=== PATIENT | male | born 1955 | race Caucasian/White ===

== ENCOUNTER → 2016-05-18 | Outpatient (CLI) | payer OTHER ==
[~2016-05-18] VITALS: Ht 185.4 cm; Wt 117.5 kg
[~2016-05-18] MED LIST: AAA; AVINZA75 MG PO; AZOR 5-40 MG T1 EACH PO; BENICAR HCT 401 EAC1 PO; CHANTIX1 MG; CHANTIX1 MG PO; CLONAZEPAM PO; DALIRESP500 MCG PO; DILAUDID 4 MG TA4 M1 PO; DURAGESIC1 EAC1 TD; FENTANYL PA50 MCG/HR TD; LIPITOR; MEDROLDOSEPACK PO; METHADONE HCL 110 M1 PO; METHADONE HCL5 MG PO; METHADOSE10 M1 PO; MS CONTIN30 MG PO; MUCINEX D TABL1 EAC1 PO; NORCO 10-325 T1 EACH PO; NUCYNTA100 MG PO; OXYCONTIN30 MG PO; PERCOCET 10-321 EACH PO; PERCOCET 7.5-31 EACH PO; PROAIR HFA8.5 GM INH; REMERON15 MG PO; RESTORIL30 MG PO; SPIRIVA INH; SYMBICORT80 MCG/4.1 INH; ZOCOR20 MG PO
--- NOTE | ~2016-05-18 | HPC ---
[facility] [place] [address] PAIN MANAGEMENT CONSULTATION Name: NAZANIN PEREZ Artie Room #: REG [facility] [place].#: [id number] Admission: 05/18/16 Attend Phys: Pollo Gillis DO Discharge: Date of : 56 Report #: [id number] THIS REPORT FOR: //name// CC: Octavio Gillis The patient is a very pleasant 60-year-old gentleman typically treated for left hip DJD, chronic pain syndrome requiring complex medication management. Last seen in the pain clinic on 03/02/2016. The patient had failed MS Contin, Avinza, Duragesic patch, and methadone. Ultimately OxyContin 30 mg b.i.d. has been efficacious for him. We have rotated back from the most recent trial of MS Contin 30 mg q. 8 hours to OxyContin 30 mg b.i.d. at last visit. We tried Percocet 7.5/325 for breakthrough pain. The patient returns to pain clinic today noting medications are providing sufficient analgesia to participate in activities of daily living, rates his overall pain as 7/10, primarily in left hip, groin, and knee, and little bit in the right knee. He continues to be quite physically active. 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 To his credit, he has continued to wean smoking, though he does smoke 2-3 cigarettes a day. We reviewed the fact that opiate medications are being used to provide analgesia adequate to support activities of daily living, not attempting to achieve a specific pain score on the 0-10 Visual Analog Scale. The current opiate medications are providing sufficient analgesia to allow the patient to participate in activities of daily living. The patient is not exhibiting any aberrant behavior suggestive of drug diversion. The patient is not having any adverse reactions to medications. The patient is not suffering from daytime somnolence or mental acuity changes. The patient is managing opiate-induced constipation with appropriate pjbn-jsu-zbvlnvh agents and dietary considerations. The patient was counseled on concern for caution with operating a motor vehicle while using opiate medications. A physical exam was performed and the patient's functional status was evaluated. All patients with back pain were advised against the bed rest greater than 4 days and were advised to return to normal activities. Pain score assessment was noted and the treatment plan was reviewed with the patient. All current medications, both prescribed and OTC were reviewed and reconciled on the electronic medical record. Tobacco screening was accomplished and smoking cessation was advised when indicated. BMI was noted and diet/exercise modification was recommended for all patients following outside normal parameters. I reviewed with the patient today their responsibilities to safeguard prescription medications, reviewed their responsibility to utilize medications only as prescribed by the physician. They are to seek and receive pain [address] [address] PAIN MANAGEMENT CONSULTATION Name: SELENEJEDNAZANIN L Room #: REG [facility]av[facility]ria#: [id number] Admission: 05/18/16 Attend Phys: Pollo Gillis DO Discharge: Date of : 56 Report #: [id number] medications only from 1 physician group ( [facility]). They are to use 1 pharmacy and keep the clinic informed if they change pharmacies. Their responsibilities include making followup visits in a timely fashion and to avoid abrupt discontinuation of medication usage. Their responsibilities further include bringing their medications (bottles from the pharmacy with residual pills) to the visit for possible confirmation of pill counts and the patient understands it is their responsibility to submit to random drug screens to ensure both that the medications prescribed are present, and that no other controlled substances are present. All prescriptions provided today were generated electronically. PHYSICAL EXAMINATION: Reveals a 60-year-old gentleman, BMI is 34.2 kilograms per meter squared. Blood pressure is little bit elevated today at 174/94, pulse 72, respirations are 20. Alert and oriented to person, place, and time. Judged to be a reasonable historian. Rises from the chair using armrest, modestly antalgic gait, favoring the left hip and leg. Lower extremity strength is symmetric. MEDICATIONS: Were reconciled today. He does take amlodipine and simvastatin along with roflumilast, and ProAir albuterol inhaler, along with Spiriva inhaler. Today, we did discuss pain medications at length. He is at, by definition, a supratherapeutic load of opiate, around 130 mEq of morphine. Lower doses, however, have impacted the patient's functional status. He has come to this dose fairly slowly. We have elected to continue OxyContin 30 mg b.i.d. (roughly equivalent to 90 mEq of morphine), and we will rotate from Percocet 7.5 to hydrocodone 10/325 up to 4 a day for breakthrough pain (another 40 mEq of morphine for a total of 130 mEq). This causes less cognitive impairment than the oxycodone p.r.n. I have taken the liberty of writing for 3 months of current medication. Follow up in 3 months for reevaluation. Last urine drug screen was on 10/04/2015, positive for prescribed medications. <ELECTRONICALLY SIGNED> By: Pollo Gillis, 05/20/16 0824 [id number] [id number] Pollo Gillis DO /nt
[2016-05-18 08:15] VITALS: BP 174/94
== END | disposition home or self-care (01) ==
LOC: PAIN 07:21
DX: G89.4 Chronic pain syndrome (principal); F11.20 Opioid dependence, uncomplicated; F17.210 Nicotine dependence, cigarettes, uncomplicated

== ENCOUNTER → 2016-08-07 | Outpatient (CLI) | payer OTHER ==
[~2016-08-07] VITALS: Ht 185.4 cm; Wt 117.0 kg
[~2016-08-07] MED LIST changes: +AMLODIPINE BESY10 MG PO; +MOBIC15 MG PO
--- NOTE | ~2016-08-07 | HPC ---
[facility] [place] [place] [address] PAIN MANAGEMENT CONSULTATION Name: NAZANIN PEREZ Artie Room #: REG [facility] Aura#: [id number] Admission: 08/07/16 Attend Phys: Pollo Gillis, DO Discharge: Date of : 56 Report #: [id number] THIS REPORT FOR: //name// CC: Octavio Gillis The patient is a very pleasant 60-year-old gentleman typically treated for chronic pain syndrome, DJD, left hip requiring complex medication management. He was last seen in the pain clinic on 05/18/2016, continued on baseline medication including OxyContin 30 mg b.i.d. and hydrocodone 10/325 four a day. We reviewed the fact that this is a relatively supratherapeutic opiate load at approximately 120 mEq of morphine. However, we have rotated from various opiates and tried weaning all with significant impact on function. I reviewed his opiate consent to treat contract which was resigned on 12/16/2015. We reviewed his last urine drug screen 10/06/2012, which is positive for prescribed medications and no others. He returns to pain clinic today noting he is starting to feel that his functioning is getting a little worse. Ongoing pain in his left hip, status post left total hip arthroplasties. He has had chronic pain here, medications have helped. 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 Continues to smoke and we talked about this at length today. He is up to 2 packs a day. He made an interesting comment stating that if he tries to quit and fails, it makes him depress. He has had struggles with depression over time. He lost his brother several years ago, has had difficulty with children having had 1 child and another child in long-term. He remains a very upbeat gentleman. He returns to pain clinic today noting subjective pain score of 7/10, remains functionally active, though he notes he is starting to pass on some of the more physically demanding tasks in his job. 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 PHYSICAL EXAMINATION: Relatively unchanged, a pleasant 60-year-old gentleman, BMI is 34 kilograms per meter squared. Blood pressure 153/73, pulse 80, respirations 16. Rises from chair using armrest. Still has a modestly antalgic gait favoring that left hip. Lower extremity strength is preserved. There is a slight leg length discrepancy here. We reviewed the fact that opiate medications are being used to provide analgesia adequate to support activities of daily living, not attempting to achieve a specific pain score on the 0-10 Visual Analog Scale. The current opiate medications are providing sufficient analgesia to allow the patient to participate in activities of daily living. The patient is not exhibiting any aberrant behavior suggestive of drug diversion. The patient is not having any adverse reactions to medications. The patient is not suffering from daytime [address] [address] PAIN MANAGEMENT CONSULTATION Name: NAZANIN PEREZ Room #: REG DANIEL Chavarria#: [id number] Admission: 08/07/16 Attend Phys: Pollo Gillis DO Discharge: Date of : 56 Report #: [id number] somnolence or mental acuity changes. The patient is managing opiate-induced constipation with appropriate bzcs-cxb-dtafnzt agents and dietary considerations. The patient was counseled on concern for caution with operating a motor vehicle while using opiate medications. A physical exam was performed and the patient's functional status was evaluated. All patients with back pain were advised against the bed rest greater than 4 days and were advised to return to normal activities. Pain score assessment was noted and the treatment plan was reviewed with the patient. All current medications, both prescribed and OTC were reviewed and reconciled on the electronic medical record. Tobacco screening was accomplished and smoking cessation was advised when indicated. BMI was noted and diet/exercise modification was recommended for all patients following outside normal parameters. I reviewed with the patient today their responsibilities to safeguard prescription medications, reviewed their responsibility to utilize medications only as prescribed by the physician. They are to seek and receive pain medications only from 1 physician group ( [facility]). They are to use 1 pharmacy and keep the clinic informed if they change pharmacies. Their responsibilities include making followup visits in a timely fashion and to avoid abrupt discontinuation of medication usage. Their responsibilities further include bringing their medications (bottles from the pharmacy with residual pills) to the visit for possible confirmation of pill counts and the patient understands it is their responsibility to submit to random drug screens to ensure both that the medications prescribed are present, and that no other controlled substances are present. All prescriptions provided today were generated electronically. ASSESSMENT: Degenerative joint disease, left hip, status post total hip arthroplasty with ongoing pain since 2006, chronic pain syndrome requiring complex medication management, stable on baseline medications. Comorbidity includes nicotine habituation and some low level anxiety and depression. RECOMMENDATIONS: Continue current schedule 2 narcotic unchanged. I have taken the liberty of writing for 2 months of current medications. The patient was seen for a prolonged visit today from 10:03-10:30. Greater than 50% of the 25+ minute visit was spent generally counseling the patient, expressing increasing function status and cognitive behavioral therapy and pain management techniques. Discharged in good and stable condition. Follow up in 3 months. By: [id number] Pollo Gillis DO /nt
[2016-08-07 09:59] VITALS: BP 153/73
== END | disposition home or self-care (01) ==
LOC: PAIN 07:09
DX: M16.12 Unilateral primary osteoarthritis, left hip (principal); M25.552 Pain in left hip; G89.4 Chronic pain syndrome; F17.200 Nicotine dependence, unspecified, uncomplicated; F11.20 Opioid dependence, uncomplicated; Z96.642 Presence of left artificial hip joint

== ENCOUNTER → 2016-10-23 | Outpatient (CLI) | payer OTHER ==
[~2016-10-23] VITALS: Ht 185.4 cm; Wt 117.5 kg
[~2016-10-23] MED LIST changes: +FLONASE 0.05%50 MCG NASAL; +WELLBUTRIN XL150 MG PO
--- NOTE | ~2016-10-23 | HPC ---
[facility] [place] [address] [place] [address] PAIN MANAGEMENT CONSULTATION Name: NAZANIN PEREZ Artie Room #: REG [facility]#: [id number] Admission: 10/23/16 Attend Phys: Pollo Gillis DO Discharge: Date of : 56 Report #: [id number] THIS REPORT FOR: //name// CC: Octavio Gillis The patient is a very pleasant 60-year-old gentleman being treated for chronic pain syndrome, left hip pain requiring complex medication management, comorbidity of some depression. Last visit 08/07/2016, we continued the patient on baseline medication including OxyContin 30 mg b.i.d., hydrocodone 10/325 four a day, counseled the patient regarding smoking cessation. 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 He just started it last week. He is hopeful this will help some with his chronic anxiety and depression. Notes ongoing left hip and groin pain with some right knee pain noted. Rates his pain 6 on a 0-10 visual analog scale, sharp, stabbing, constant pain exacerbated with walking and other activity. PHYSICAL EXAMINATION: Unchanged. A 60-year-old gentleman, BMI is 34.2 kilograms per meter squared. Blood pressure modestly elevated at 167/80, pulse 69, respirations 14. Cranial nerves 2-12 are grossly intact. Pupils equal, reactive to light and accommodation. Extraocular muscles are intact. Rises from chair using armrest. Modestly antalgic gait. Left hip range of motion is limited. We reviewed the fact that opiate medications are being used to provide analgesia adequate to support activities of daily living, not attempting to achieve a specific pain score on the 0-10 Visual Analog Scale. The current opiate medications are providing sufficient analgesia to allow the patient to participate in activities of daily living. The patient is not exhibiting any aberrant behavior suggestive of drug diversion. The patient is not having any adverse reactions to medications. The patient is not suffering from daytime somnolence or mental acuity changes. The patient is managing opiate-induced constipation with appropriate fiky-xfy-fwxsyjr agents and dietary considerations. The patient was counseled on concern for caution with operating a motor vehicle while using opiate medications. A physical exam was performed and the patient's functional status was evaluated. All patients with back pain were advised against the bed rest greater than 4 days and were advised to return to normal activities. Pain score assessment was noted and the treatment plan was reviewed with the patient. All current medications, both prescribed and OTC were reviewed and reconciled on the electronic medical record. Tobacco screening was accomplished and smoking cessation was advised when indicated. BMI was noted and diet/exercise modification was recommended for all patients following outside normal parameters. [address] [address] PAIN MANAGEMENT CONSULTATION Name: NAZANIN PEREZ Room #: REG DANIEL Chavarria#: [id number] Admission: 10/23/16 Attend Phys: Pollo Gillis DO Discharge: Date of : 57 Report #: [id number] I reviewed with the patient today their responsibilities to safeguard prescription medications, reviewed their responsibility to utilize medications only as prescribed by the physician. They are to seek and receive pain medications only from 1 physician group ( [facility]). They are to use 1 pharmacy and keep the clinic informed if they change pharmacies. Their responsibilities include making followup visits in a timely fashion and to avoid abrupt discontinuation of medication usage. Their responsibilities further include bringing their medications (bottles from the pharmacy with residual pills) to the visit for possible confirmation of pill counts and the patient understands it is their responsibility to submit to random drug screens to ensure both that the medications prescribed are present, and that no other controlled substances are present. All prescriptions provided today were generated electronically. Since we last saw the patient, he did have significant diagnostic studies and workup with his deputy sheriff generalist physician. White count is modestly elevated in the 12 range. Other values are all within normal limits. Renal function is good. A testosterone level was not drawn, he has a followup appointment for physical exam next week and I did strongly suggest that they check a testosterone level at that time. Medications were reconciled, noting antihypertensive amlodipine, pulmonary agents including Spiriva, Daliresp, ProAir inhaler, meloxicam 15 mg 1 a day and the new agent, bupropion 150 mg daily. Today, we have elected to continue OxyContin 30 mg b.i.d., hydrocodone 10/325 up to 4 a day. Last urine drug screen 10/04/2015 was positive for prescribed medication. We will see the patient back in 3 months for reevaluation, likely get a urine drug screen at that time. No aberrant behavior suggestive for drug diversion, simply complying with our opiate consent to treat contract. By: [id number] Pollo Gillis DO /nt
[2016-10-23 08:59] VITALS: BP 167/80
== END | disposition home or self-care (01) ==
LOC: PAIN 06:32
DX: G89.4 Chronic pain syndrome (principal); M25.552 Pain in left hip; F32.89 Other specified depressive episodes; F41.8 Other specified anxiety disorders; F11.20 Opioid dependence, uncomplicated; F17.200 Nicotine dependence, unspecified, uncomplicated; Z88.0 Allergy status to penicillin; Z79.899 Other long term (current) drug therapy

== ENCOUNTER → 2017-01-11 | Outpatient (CLI) | payer OTHER ==
[~2017-01-11] VITALS: Ht 185.4 cm; Wt 117.0 kg
--- NOTE | ~2017-01-11 | HPC ---
[facility] [address] [address] PAIN MANAGEMENT CONSULTATION Name: NAZANIN PEREZ Artie Room #: REG [facility] Aura#: [id number] Admission: 01/11/17 Attend Phys: Pollo Gillis DO Discharge: Date of : 57 Report #: [id number] THIS REPORT FOR: //name// CC: Octavio Gillis DATE OF SERVICE: 01/11/2017 HISTORY OF PRESENT ILLNESS: The patient is a very pleasant 61-year-old gentleman, being treated for left hip pain, DJD affecting bilateral hips, chronic pain syndrome requiring complex medication management in a gentleman who continues to smoke. The patient was last seen in pain clinic on 10/23/2016. Prior urine drug screen on 10/04/2015 was positive for prescribed medications. The patient is self pay, we have been a little hesitant about moving forward with another repeat drug test simply for cost concerns. We will get a buccal swab at next visit with some research looks like it is about $40 for patient pay. The patient returns today. To his credit, he has been continuing to try and quit smoking. General practitioner had started him on Wellbutrin; unfortunately, this caused some increasing anxiety, he discontinued it. He is having a little bit of right lower extremity edema, which is unusual for him. Lower extremity edema is nominal to trace on the left, but he does have maybe +1 on the right side. He got a cardiac scan at for a $50 noting that did have a calcium low. They scheduled a cardiac evaluation at . This was scheduled for 12/19. Notes currently pain as a 5 on a VAS, continuous pain in the left hip and left groin with a little bit of pain now in the right hip as well. 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 PHYSICAL EXAMINATION: Shows a 61-year-old gentleman, BMI is 34 kilograms per meter squared. Vital signs are generally stable. Rises from chair using armrest. Nominally antalgic gait. The left hip replaced at age 31 due to trauma. He had it revised 20 years later at age 51. Left hip again some chronic pain, well managed with current medications. Right hip does show a little pain with passive rotation with internal and external. No pain with palpation over the trochanteric bursa. No pain over the SI joint. Again, continues to smoke, but is down to half a pack a day. We talked about the patient's triggers for smoking, tends to be anxiety and ironically shortness of breath. We talked about the reward being some period of time that he gets to relax i.e., the 5 minutes to take to smoke a cigarette. I suggested he identify those [address] [address] PAIN MANAGEMENT CONSULTATION Name: NAZANIN PEREZ Artie Room #: REG [facility]avarria#: [id number] Admission: 01/11/17 Attend Phys: Pollo Gillis DO Discharge: Date of : 57 Report #: [id number] triggers and still enjoy the reward i.e., 5 minutes to take a break both mentally and physically from what he is doing, but instead of smoking look for another diversion. To this end, he notes he just had a grandson, his first grandchild, born on 11/05. He has multiple pictures on his phone of his grandson. He showed me some of them. I suggest that he focused on looking at those pictures or doing some other restful, stress relieving short strategies for 4 or 5 minutes rather than lighting a cigarette. We reviewed the fact that opiate medications are being used to provide analgesia adequate to support activities of daily living, not attempting to achieve a specific pain score on the 0-10 Visual Analog Scale. The current opiate medications are providing sufficient analgesia to allow the patient to participate in activities of daily living. The patient is not exhibiting any aberrant behavior suggestive of drug diversion. The patient is not having any adverse reactions to medications. The patient is not suffering from daytime somnolence or mental acuity changes. The patient is managing opiate-induced constipation with appropriate ixyt-wot-ktilsha agents and dietary considerations. The patient was counseled on concern for caution with operating a motor vehicle while using opiate medications. A physical exam was performed and the patient's functional status was evaluated. All patients with back pain were advised against the bed rest greater than 4 days and were advised to return to normal activities. Pain score assessment was noted and the treatment plan was reviewed with the patient. All current medications, both prescribed and OTC were reviewed and reconciled on the electronic medical record. Tobacco screening was accomplished and smoking cessation was advised when indicated. BMI was noted and diet/exercise modification was recommended for all patients following outside normal parameters. I reviewed with the patient today their responsibilities to safeguard prescription medications, reviewed their responsibility to utilize medications only as prescribed by the physician. They are to seek and receive pain medications only from 1 physician group ([facility]). They are to use 1 pharmacy and keep the clinic informed if they change pharmacies. Their responsibilities include making followup visits in a timely fashion and to avoid abrupt discontinuation of medication usage. Their responsibilities further include bringing their medications (bottles from the pharmacy with residual pills) to the visit for possible confirmation of pill counts and the patient understands it is their responsibility to submit to random drug screens to ensure both that the medications prescribed are present, and that no other controlled substances are present. All prescriptions provided today were generated electronically. ASSESSMENT: Symptomatic degenerative joint disease, left hip, status post total hip arthroplasty and revision, some chronic pain now in the right hip as well, requiring high risk complex medication management, stable on OxyContin 30 mg b.i.d., hydrocodone 10/325. This is by definition somewhat of a [facility] [address] [place] [address] PAIN MANAGEMENT CONSULTATION Name: NAZANIN PEREZ Artie Room #: REG [facility].#: [id number] Admission: 01/11/17 Attend Phys: Pollo Gillis DO Discharge: Date of : 57 Report #: [id number] supratherapeutic load at about a 115 mEq of morphine. We have tried an opiate rotation and weaning, although these have always ended with decreased functional status. We elected to continue current medication unchanged for another 3 months. Buccal swab at next visit. Discharged in good and stable condition. <ELECTRONICALLY SIGNED> By: Pollo Gillis DO 01/13/17 0811 0847 [id number] Pollo Gillis DO /nt
[2017-01-11 08:07] VITALS: BP 141/82
== END ==
LOC: PAIN 07:10
DX: M16.0 Bilateral primary osteoarthritis of hip (principal)

== ENCOUNTER → 2017-06-28 | Outpatient (CLI) | payer OTHER ==
[~2017-06-28] VITALS: Ht 182.9 cm; Wt 119.6 kg
[~2017-06-28] MED LIST changes: +CLONAZEPAM 0.50.5 M1 PO; +HYDROCHLOROTHIA25 M2 PO; +LIPITOR 20 MG T20 M1 PO; +NICOTINE TRANSD21 M1; +ST. JOSEPH ASPI81 MG PO
--- NOTE | ~2017-06-28 | HPC ---
[facility] [place] [address] [place] [address] PAIN MANAGEMENT CONSULTATION Name: NAZANIN PEREZ Artie [facility] [id number] Admission: 06/28/17 Attend Phys: Pollo Gillis DO Discharge: Date of : 56 Report #: [id number] THIS REPORT FOR: //name// CC: Octavio Gillis The patient is a 61-year-old gentleman typically treated for DJD affecting bilateral hips, left greater than right, requiring complex medication management. Last seen in the pain clinic 03/29/2017. Since last visit, the patient has had significant health issues. He was admitted to [facility] with pneumonia. Fortunately, during this interval, he did quit smoking and is now about 30 days nonsmoker. He returns to pain clinic today noting pain impact score is 31/70. His opiate risk assessment tool scores him in the moderate risk (4). The patient notes current pain is a 6 on VAS, primarily left greater than right hip. He notes if he walks more that about 5 minutes, gait becomes problematic. PHYSICAL EXAMINATION: Shows a pleasant 61-year-old gentleman, BMI is 35.7 kg/m2. Blood pressure 161/68, pulse 79, respirations are 20, room air oxygen saturation is 97%. He has not fallen in the last 3 months. He is hypertensive. Medication list was reconciled today. His last opiate consent to treat contracted was signed 12/16/2015. Last random drug screen 03/30/2017, was positive for prescribed medications and no others. Again, the patient had been up to 2 packs a day smoker, 45-year smoking, though he has now been a nonsmoker for 30 days. Rises from chair using armrest. Gait is tandem initially, though states with about 5 minutes of walking, his gait does become modestly antalgic. Slight decreased range of motion in both hips, left greater than right with exacerbation of pain, full range of motion. Krishna test is negative. No discrete trigger points are noted. We reviewed the fact that opiate medications are being used to provide analgesia adequate to support activities of daily living, not attempting to achieve a specific pain score on the 0-10 Visual Analog Scale. The current opiate medications are providing sufficient analgesia to allow the patient to participate in activities of daily living. The patient is not exhibiting any aberrant behavior suggestive of drug diversion. The patient is not having any adverse reactions to medications. The patient is not suffering from daytime somnolence or mental acuity changes. The patient is managing opiate-induced constipation with appropriate espt-jmk-ebtxevr agents and dietary considerations. The patient was counseled on concern for caution with operating a motor vehicle while using opiate medications. A physical exam was performed and the patient's functional status was evaluated. All patients with back pain were advised against the bed rest greater than 4 days and were advised to return to normal activities. Pain score assessment was [address] [address] PAIN MANAGEMENT CONSULTATION Name: NAZANIN PEREZ Artie Room #: REG DANIEL Chavarria#: [id number] Admission: 06/28/17 Attend Phys: Pollo Gillis DO Discharge: Date of : 56 Report #: [id number] noted and the treatment plan was reviewed with the patient. All current medications, both prescribed and OTC were reviewed and reconciled on the electronic medical record. Tobacco screening was accomplished and smoking cessation was advised when indicated. BMI was noted and diet/exercise modification was recommended for all patients following outside normal parameters. I reviewed with the patient today their responsibilities to safeguard prescription medications, reviewed their responsibility to utilize medications only as prescribed by the physician. They are to seek and receive pain medications only from 1 physician group ( [facility]). They are to use 1 pharmacy and keep the clinic informed if they change pharmacies. Their responsibilities include making followup visits in a timely fashion and to avoid abrupt discontinuation of medication usage. Their responsibilities further include bringing their medications (bottles from the pharmacy with residual pills) to the visit for possible confirmation of pill counts and the patient understands it is their responsibility to submit to random drug screens to ensure both that the medications prescribed are present, and that no other controlled substances are present. All prescriptions provided today were generated electronically. ASSESSMENT: Degenerative joint disease, bilateral hips, left greater than right, requiring complex medication management. RECOMMENDATION: Long discussion with the patient today about therapeutic option. I pointed out that he is by definition at a supratherapeutic dose of narcotic, has been stable on OxyContin 30 mg b.i.d., Percocet 10/325 up to 4 a day. This equates to roughly 150 mg of morphine equivalents. We discussed that at next visit in the warmer weather, we will try and decrease his OxyContin as able. Discharged in good and stable condition. The patient was given prescription for 3 months of current medication. Follow up at that time, earlier if needed. <ELECTRONICALLY SIGNED> By: Pollo Gillis DO 07/01/17 1010 [id number] Pollo Gillis DO /nt
[2017-06-28 09:18] VITALS: BP 161/68
== END ==
LOC: PAIN 06-07 06:50
DX: M16.0 Bilateral primary osteoarthritis of hip (principal); Z79.899 Other long term (current) drug therapy

== ENCOUNTER → 2017-11-12 | Outpatient (CLI) | payer OTHER ==
[~2017-11-12] VITALS: Ht 182.9 cm; Wt 121.4 kg
--- NOTE | ~2017-11-12 | HPC ---
[facility] [place] [address] PAIN MANAGEMENT CONSULTATION Name: NAZANIN PEREZ Artie Room #: REG [facility].#: [id number] Admission: 11/12/17 Attend Phys: Pollo Gillis DO Discharge: Date of : 56 Report #: [id number] THIS REPORT FOR: //name// CC: Octavio Gillis DATE OF SERVICE: 11/12/2017 The patient is a very pleasant 62-year-old gentleman being treated for chronic pain syndrome requiring complex medication management. The patient has significant osteoarthritis affecting bilateral hips. He is status post left total hip arthroplasty, originally 1985, revised in 2005. Ongoing left hip osteoarthritic pain. Last seen in the Pain Clinic on 09/03/2017. The patient was continued on chronic opiate analgesics including OxyContin 30 mg b.i.d., Percocet 10/325 up to 4 a day. We discussed that this is a relative supratherapeutic opiate load, equating to 150 mg morphine equivalents. We would like to try and wean this; however, past trials at opiate wean have caused significant decrease in functional status. Regarding functional status, we had a prolonged visit today. I spent reviewing therapeutic options and impact of ongoing pain. The patient is becoming more and more functionally disabled despite ongoing analgesics. He states if he walks greater than 100 yards, pain becomes quite problematic. He cannot "make it through the [employer]" without significant pain. He is having more and more trouble getting in and out of his van. Again, pain is in the right greater than left hip. He also has some pain in the left wrist and does actually have some osseous hypertrophy to distal aspect of the left radial head at the carpal joint. To patient's credit, he has continued to try and quit smoking. He understands this is a very difficult task. He notes, "This is my 35th attempt at smoking cessation." He is down from 2 packs a day to about a half a pack a day. The patient was applauded on this effort and encouraged to continue. PHYSICAL EXAMINATION: Shows 62-year-old gentleman, BMI is 36.3 kg/m2. Vital signs stable as noted on the EMR (blood pressure 156/73, pulse 82, respirations of 16, room air oxygen saturation is 97%). He is alert and oriented to person, place and time, judged to be a reasonable historian. Again, a little osseous hypertrophy of the left distal radial head. Limited range of motion in the wrist to supination, pronation, flexion and extension. Left little worse than the right. Modestly endomorphic build with [facility] [address] [place] [address] PAIN MANAGEMENT CONSULTATION Name: SELENEISATUNAZANIN ELLINGTON Room #: REG [facility].#: [id number] Admission: 11/12/17 Attend Phys: Pollo Gillis DO Discharge: Date of : 56 Report #: [id number] BMI of 36.3 kg/m2. Rises from chair using armrest, has a moderately antalgic gait, which progressively gets a little worse with ambulation. Last random drug screen on 03/29/2017 was positive for prescribed medications. We reviewed the fact that opiate medications are being used to provide analgesia adequate to support activities of daily living, not attempting to achieve a specific pain score on the 0-10 Visual Analog Scale. The current opiate medications are providing sufficient analgesia to allow the patient to participate in activities of daily living. The patient is not exhibiting any aberrant behavior suggestive of drug diversion. The patient is not having any adverse reactions to medications. The patient is not suffering from daytime somnolence or mental acuity changes. The patient is managing opiate-induced constipation with appropriate tapv-ecd-xsybjav agents and dietary considerations. The patient was counseled on concern for caution with operating a motor vehicle while using opiate medications. A physical exam was performed and the patient's functional status was evaluated. All patients with back pain were advised against the bed rest greater than 4 days and were advised to return to normal activities. Pain score assessment was noted and the treatment plan was reviewed with the patient. All current medications, both prescribed and OTC were reviewed and reconciled on the electronic medical record. Tobacco screening was accomplished and smoking cessation was advised when indicated. BMI was noted and diet/exercise modification was recommended for all patients following outside normal parameters. I reviewed with the patient today their responsibilities to safeguard prescription medications, reviewed their responsibility to utilize medications only as prescribed by the physician. They are to seek and receive pain medications only from 1 physician group ([facility]). They are to use 1 pharmacy and keep the clinic informed if they change pharmacies. Their responsibilities include making followup visits in a timely fashion and to avoid abrupt discontinuation of medication usage. Their responsibilities further include bringing their medications (bottles from the pharmacy with residual pills) to the visit for possible confirmation of pill counts and the patient understands it is their responsibility to submit to random drug screens to ensure both that the medications prescribed are present, and that no other controlled substances are present. All prescriptions provided today were generated electronically. Again, it has been quite some time since we have had any diagnostic studies. MRI of the lower extremity back in 2004 noted degenerative changes of the lumbar spine, arthritic changes in the joint. ASSESSMENT: Chronic osteoarthritis affecting bilateral hips and wrists, status [address] [address] PAIN MANAGEMENT CONSULTATION Name: NAZANIN PEREZ Room #: REG [facility]#: [id number] Admission: 11/12/17 Attend Phys: Pollo Gillis DO Discharge: Date of : 56 Report #: [id number] post right total hip arthroplasty 1985, revised in 2005; ongoing left hip OA pain. Decreasing functional status as noted longitudinally in the chart. PLAN: Discussion with the patient today about moving forward. Again, out of nearly 30 years of practice, I have actively suggested disability for less than a half dozen patients. Typically, we view our goal in pain management to try and mitigate current pain issues and encourage the patient to move forward with functional ability, using interventional techniques and the pain treatment algorithm latter to help patient maintain functional status with pain being somewhat lowered, never seeking a "0" on a 0-10 visual analog scale. In the patient's case, however, I feel he has been very proactively productive. 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 He is very proud of his independence and work effort. This has been clear over the years. Unfortunately, I really feel that his functional status is declining to the point that meaningful employment is not likely going to be a realistic possibility in a very short time period. Today, I did renew the patient's current medication, OxyContin 30 mg b.i.d., Percocet 10/325 at 4 a day. Encouraged to continue with his smoking cessation. Discharged in good and stable condition. Follow up with one of my [facility] in 3 months. <ELECTRONICALLY SIGNED> By: Pollo Gillis DO 11/14/17 1135 0919 1000 Pollo Gillis DO /nt
[2017-11-12 08:22] VITALS: BP 156/73
== END ==
LOC: PAIN 07:58
DX: M16.0 Bilateral primary osteoarthritis of hip (principal); M19.032 Primary osteoarthritis, left wrist; M19.031 Primary osteoarthritis, right wrist; G89.4 Chronic pain syndrome; Z96.651 Presence of right artificial knee joint; Z79.899 Other long term (current) drug therapy

== ENCOUNTER → 2018-01-21 | Outpatient (CLI) | payer OTHER ==
[~2018-01-21] VITALS: Ht 182.9 cm; Wt 115.8 kg
[2018-01-21 08:16] VITALS: BP 148/85
== END ==
LOC: PAIN 06:55
DX: M25.552 Pain in left hip (principal); G35 Multiple sclerosis; M25.551 Pain in right hip; G89.29 Other chronic pain; Z79.899 Other long term (current) drug therapy

== ENCOUNTER → 2018-04-11 | Outpatient (CLI) | payer OTHER ==
[~2018-04-11] VITALS: Ht 182.9 cm; Wt 115.9 kg
--- NOTE | ~2018-04-11 | HPC ---
[facility] [address] [place] [address] PAIN MANAGEMENT CONSULTATION Name: NAZANIN PEREZ Room #: [facility] [id number] Admission: 04/11/18 Attend Phys: Diane Valverde Discharge: Date of : 56 Report #: [id number] THIS REPORT FOR: //name// CC: Diane Valverde Soco Allen DATE OF SERVICE: 04/11/2018 CHIEF COMPLAINT: Chronic pain syndrome, osteoarthritis affecting his bilateral hips and wrists. HISTORY OF PRESENT ILLNESS: This is a very pleasant 62-year-old gentleman who has been followed by the Pain Clinic for several years. He has been treated for chronic pain with complex medical management. He has significant osteoarthritis affecting his hips bilaterally. He has had a left hip arthroplasty in 1985 and a revision in 2005. He does have ongoing left hip pain. He tells me that his OxyContin 30 mg twice a day and his hydrocodone 10/325 up to 4 times a day has been very helpful in controlling his pain. He rates it as 5/10 today and would like a refill of this medication. CURRENT ALLERGIES: PENICILLIN. CURRENT LIST OF MEDICATIONS: OxyContin 30 mg twice a day, hydrocodone 10/325 one tablet 4 times a day, atorvastatin 20 mg daily, baby aspirin 81 mg daily, clonazepam 0.5 twice a day, nicotine patch once daily, hydrochlorothiazide 25 mg daily, amlodipine 40 mg daily, Mucinex as needed, ProAir as needed, Daliresp 500 mcg daily and Spiriva inhaler daily. PQRS: 1. History of osteoarthritis involving his left hip with two hip replacements. Denies rheumatoid arthritis. 2. Height is 6 feet, weight is 255, BMI is 34.4. 3. Vital signs: Blood pressure 164/95, pulse is 70, respirations 20, oxygen sat is 98%. Pain score is 5. 4. Dizziness, he denies. He does not need help walking or standing and has not fallen in the last 3 months. 5. The patient is not on a blood thinner, but does take antihypertensive medicines. 6. Opioid therapy is greater than 6 weeks, therefore an opioid signed contract is on the chart. 7. Risk assessment tool is moderate and his functional assessment is 31/70. 8. Recreational drug use, is greater than 3 months. He has a current cigarette smoker though is trying to quit and does not use alcohol. We did check the [place] Prescription monitoring systems. The patient is filling appropriately from Dr. Mcmahon at appropriate times. The [address] [address] PAIN MANAGEMENT CONSULTATION Name: NAZANIN PEREZ Room #: REG [facility].#: [id number] Admission: 04/11/18 Attend Phys: Diane Valverde Discharge: Date of : 56 Report #: [id number] patient tells me he does safeguard his meds. We will check a drug screen again on this patient today it has been almost a year since the last one was performed. PHYSICAL EXAMINATION: GENERAL: This patient is a well-developed, well-nourished white male, who appears his stated age. He is alert and oriented. Affect is appropriate and speech is fluent. HEENT: Normocephalic, atraumatic. Extraocular eye muscles are intact. Mucous membranes are moist. NECK: Without adenopathy or JVD. EXTREMITIES: Lower extremity, the patient has some discomfort in his left hip. Lower extremity strength judged to be 5/5 in all muscle groups. Walk is with an antalgic gait. ASSESSMENT: 1. Chronic hip pain. 2. Osteoarthritis involving his hips bilaterally. 3. Pulmonary disease treated by Dr. Martinez. 4. Complex medical management and the patient being seen under a written opioid agreement. We reviewed the fact that opiate medications are being used to provide analgesia adequate to support activities of daily living, not attempting to achieve a specific pain score on the 0-10 Visual Analog Scale. The current opiate medications are providing sufficient analgesia to allow the patient to participate in activities of daily living. The patient is not exhibiting any aberrant behavior suggestive of drug diversion. The patient is not having any adverse reactions to medications. The patient is not suffering from daytime somnolence or mental acuity changes. The patient is managing opiate-induced constipation with appropriate pcyq-xzd-iodvrri agents and dietary considerations. The patient was counseled on concern for caution with operating a motor vehicle while using opiate medications. A physical exam was performed and the patient's functional status was evaluated. All patients with back pain were advised against the bed rest greater than 4 days and were advised to return to normal activities. Pain score assessment was noted and the treatment plan was reviewed with the patient. All current medications, both prescribed and OTC were reviewed and reconciled on the electronic medical record. Tobacco screening was accomplished and smoking cessation was advised when indicated. BMI was noted and diet/exercise modification was recommended for all patients following outside normal parameters. I reviewed with the patient today their responsibilities to safeguard prescription medications, reviewed their responsibility to utilize medications [facility] [address] [place] [address] PAIN MANAGEMENT CONSULTATION Name: NAZANIN PEREZ Room #: REG [facility]#: [id number] Admission: 04/11/18 Attend Phys: Diane Valverde Discharge: Date of : 56 Report #: [id number] only as prescribed by the physician. They are to seek and receive pain medications only from 1 physician group ( [facility]). They are to use 1 pharmacy and keep the clinic informed if they change pharmacies. Their responsibilities include making followup visits in a timely fashion and to avoid abrupt discontinuation of medication usage. Their responsibilities further include bringing their medications (bottles from the pharmacy with residual pills) to the visit for possible confirmation of pill counts and the patient understands it is their responsibility to submit to random drug screens to ensure both that the medications prescribed are present, and that no other controlled substances are present. All prescriptions provided today were generated electronically. PLAN: 1. We discussed treatment options with the patient today. The patient has been told by Dr. Gillis in the past that his morphine milliequivalent is above the CDC guidelines. We had weaned the patient down some in the past and discussed that we will need to be doing that again in the future. We figured his number today to be 120 MME. Per the CDC guidelines they want people at 90 MME or lower. The patient understands these numbers. We discussed treatment options as far as decreasing his OxyContin from 30 mg twice a day to 30 mg in the morning and 20 mg at night. This will be a total of 50 mg a day for several months, then decreasing him further to 20 mg b.i.d. That was one option. The other option we talked about was Xtampza, which is another abuse deterrent medication. The patient will see if that medicine is on his formulary. Third option that we did discuss was using Suboxone for chronic pain and taking him off his other opioid medications. The patient is agreeable with this, but wants to think about, which medicine might be covered by his insurance company. Currently, his OxyContin needs a prior authorization every 90 days, which we have been doing for his stable medicine that he has been of his 30 mg twice a day. 2. The patient is functioning despite being on all these medications. 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 3. Scripts given today are OxyContin 30 mg b.i.d. for today and 4-week, hydrocodone 10/325 four times a day with refills. 4. Urine drug screen done today, since it has not been done in the past year. 5. The patient is agreeable with this plan of care, will talk to his insurance company about prescription coverage on his current medications as he will be changing to a different company, he thinks in May for his prescription [address] [address] PAIN MANAGEMENT CONSULTATION Name: NAZANIN PEREZ Room #: REG D[facility]EL [place].#: [id number] Admission: 04/11/18 Attend Phys: Diane Valverde Discharge: Date of : 57 Report #: [id number] coverage. 6. The patient is seen under collaboration today with Dr. Kaiser Richards. <ELECTRONICALLY SIGNED> By: Diane Valverde 04/12/18 [id number] 1837 Diane Valverde /nt
[2018-04-11 10:59] VITALS: BP 164/95
== END ==
LOC: PAIN 00:31
DX: M16.0 Bilateral primary osteoarthritis of hip (principal); J98.4 Other disorders of lung; G89.4 Chronic pain syndrome; Z79.899 Other long term (current) drug therapy; Z79.891 Long term (current) use of opiate analgesic

== ENCOUNTER → 2018-07-14 | Outpatient (CLI) | payer OTHER ==
[~2018-07-14] VITALS: Ht 182.9 cm; Wt 116.4 kg
[~2018-07-14] MED LIST changes: +ALBUTEROL2.5 MG/31 INH; +BENICAR40 MG PO; +K-DUR 20 MEQ T20 MEQ PO; +NICORETTE2 M1 PO; +NICOTINE NASAL; +OXYCONTIN20 M1 PO; +SYMBICORT160 MCG/4. INH; +TORSEMIDE10 MG PO; +VOLTAREN GEL 1100 G2 TOP
[2018-07-14 08:56] VITALS: BP 182/96
--- NOTE | 2018-07-14 09:22 | NUR ---
Pain Clinic Assessment: 1. History of Osteoarthritis: Not Applicable History of Rheumatoid Arthritis: Not Applicable 2. Height: 6 ft. 0 in. 182.9 cm. Weight: 256.6 lb. oz. 116.393 kg. Patient's BMI: 34.8 3. Vital Signs: BP: 182/96 Pulse: 76 Resp: 20 Temp: 02 Sat: 97 ECG Mon: 4. Pain Intensity: 3-TODAY AFTER MEDS 5. Fall Risk: Dizziness: N Needs help standing or walking: N Fallen in the last 3 months: N Fall risk comments: 0 6. Patient on Blood Thinner: UNSURE OF NAME 7. History of Hypertension: Y 8. Opioid Therapy greater than 6 weeks: Y Opiate Contract Signed: 12/16/15 9. Risk Assessment Tool Provided: mod risk 10. Functional Assessment Tool: 11. Recreational Drug Use: Past greater than 3 mos Drug Type: Tobacco Use: Current Every Day Smoker Tobacco Type: Cigarettes Amount or Packs/day: 1 PACK How Many Years: 45 Alcohol Use: No Frequency: Quant:
--- NOTE | 2018-07-15 07:36 | HPC ---
[facility] [address] [address] PAIN MANAGEMENT CONSULTATION Name: NAZANIN PEREZ Artie [facility] [id number] Admission: 07/14/18 ������������������ Attend Phys: Diane Valverde Discharge: ������������������ Date of : 57 Report #: [id number] THIS REPORT FOR: //name// CC: Diane Valverde Soco Allen DATE OF SERVICE: 07/14/2018 CHIEF COMPLAINT: Osteoarthritis affecting the bilateral hips and wrists and chronic back pain. HISTORY OF PRESENT ILLNESS: This is a very pleasant 62-year-old gentleman who returns to the pain clinic today for refill of his medications. He tells me that he has significant hip pain, worse at his left than his right and he also has left wrist pain and knee pain. His pain score today is 3/10 with his medications, worse with his walking, standing and activity. His pain is better with his medications, lying down and sitting down. He tells me that he does not have any problems with constipation. He tells me that he recently had a sleep study. He is waiting to hear the results of that study. Along with a sleep study, he also had a CT scan of his chest, which showed an area that they are watching. They think it is a spot from previous pneumonia that he had had and they are going to recheck it in another month. The patient tells me that he is trying to decrease his smoking. He is wearing a nicotine patch today and also using nicotine lozenges. The patient is requesting a refill of his Voltaren gel that he had had in the past from Dr. Pollo Gillis. He tells me that meloxicam occasionally gives him GERD and upsets his stomach, therefore he does not take it every day. He had used Voltaren in the past in his joints on his hip and his wrist and it had been helpful and would like a refill of that as well as his medications today. ALLERGIES: PENICILLIN. CURRENT LIST OF MEDICATIONS: OxyContin 30 mg at bedtime, hydrocodone 10/325 four times a day, Lipitor 40 mg daily, aspirin 81 mg daily, clonazepam 0.5 b.i.d., hydrochlorothiazide 25 mg daily, Flonase 50 mcg daily, amlodipine 40 mg daily, Mucinex as needed, albuterol inhaler as needed, Daliresp 500 mcg daily and Spiriva inhaler daily. PQRS: He has osteoarthritis in his bilateral hips and his wrist. He denies rheumatoid arthritis. Height 6 feet 0 inch, weight is 256, BMI is 34.8. Vital signs: Blood pressure 182/96, pulse of 76, respirations 20, oxygen sat is 97. Pain score is 3/10. Fall risk: Denies dizziness. Does not need help walking or standing. Has not fallen in the last 3 months. The patient is not on a blood thinner. He does take medicines for hypertension. Opioid therapy is greater than 6 weeks, therefore, an opioid signed contract is on the chart. His risk assessment tool is moderate. His functional assessment is 31/70. [address] [address] PAIN MANAGEMENT CONSULTATION Name: NAZANIN PEREZ Room #: REG CLRichar Chavarria#: [id number] Admission: 07/14/18 ������������������ Attend Phys: Diane Valverde Discharge: ������������������ Date of : 57 Report #: [id number] Recreational drug use in the past, current smoking about a pack a day and nicotine patches. Denies alcohol use. We did check the prescription monitoring system. The patient is filling appropriately with his medications in a timely fashion. He tells me he safeguards his medications and there is a drug screen on the chart that is recent. PHYSICAL EXAMINATION: GENERAL: This is a well-developed, well-nourished 62-year-old gentleman who appears his stated age. He is alert and orientated. His affect is appropriate. His speech is fluent. His hearing is slightly diminished. HEENT: Normocephalic. Extraocular muscles are intact. Mucous membranes are moist. EXTREMITIES: Lower extremity strength judged to be 5/5 in all major muscle groups. The patient does complain of left hip pain as well as left wrist arthritic changes. He walks with an antalgic gait. When seated in a chair he does lean slightly to the right for comfort. ASSESSMENT: 1. Chronic hip pain, osteoarthritis involving hips bilaterally, status post hip replacement. 2. Pulmonary disease. 3. Sleep issues with a recent sleep study. 4. Complex medical management under written opioid agreement. 5. Osteoarthritis, multiple pain generators. We reviewed the fact that opiate medications are being used to provide analgesia adequate to support activities of daily living, not attempting to achieve a specific pain score on the 0-10 Visual Analog Scale. The current opiate medications are providing sufficient analgesia to allow the patient to participate in activities of daily living. The patient is not exhibiting any aberrant behavior suggestive of drug diversion. The patient is not having any adverse reactions to medications. The patient is not suffering from daytime somnolence or mental acuity changes. The patient is managing opiate-induced constipation with appropriate udtz-znd-csqnymr agents and dietary considerations. The patient was counseled on concern for caution with operating a motor vehicle while using opiate medications. A physical exam was performed and the patient's functional status was evaluated. All patients with back pain were advised against the bed rest greater than 4 days and were advised to return to normal activities. Pain score assessment was noted and the treatment plan was reviewed with the patient. All current medications, both prescribed and OTC were reviewed and reconciled on the electronic medical record. Tobacco screening was accomplished and smoking cessation was advised when indicated. BMI was noted and diet/exercise [address] [address] PAIN MANAGEMENT CONSULTATION Name: NAZANIN PEREZ Room #: REG DANIEL Chavarria#: [id number] Admission: 07/14/18 ������������������ Attend Phys: Diane Valverde Discharge: ������������������ Date of : 57 Report #: [id number] modification was recommended for all patients following outside normal parameters. I reviewed with the patient today their responsibilities to safeguard prescription medications, reviewed their responsibility to utilize medications only as prescribed by the physician. They are to seek and receive pain medications only from 1 physician group ( [facility]). They are to use 1 pharmacy and keep the clinic informed if they change pharmacies. Their responsibilities include making followup visits in a timely fashion and to avoid abrupt discontinuation of medication usage. Their responsibilities further include bringing their medications (bottles from the pharmacy with residual pills) to the visit for possible confirmation of pill counts and the patient understands it is their responsibility to submit to random drug screens to ensure both that the medications prescribed are present, and that no other controlled substances are present. All prescriptions provided today were generated electronically. PLAN: 1. We discussed treatment options with the patient today. The patient tells me that he decreased his medication per our last visit. He said he did have some rough few days, but has stabilized and he currently takes his OxyContin 30 mg once a day as well as OxyContin 20 mg once a day, refills of both these medications were given today. 2. Second medicine is hydrocodone 10/325, #120, with no additional refills. 3. Voltaren gel script was given for patient to use on his hip and wrist and continue to use his Meloxicam as a p.r.n. medicine. 4. A great amount of time was spent on the patient's past drug screen and the abnormality of it from 2 months ago. The most recent was positive for the current medicines that he takes, much discussion about why this would have been altered. Also, the fact that clonazepam has never showed up on his drug screens for multiple years. I suggested to the patient that maybe he does not metabolize that medicine effectively and he can discuss that with his primary doctor to see if there is an alternative that he can take that is still in that same classification, that would help him with his anxiety, that may benefit him more. The patient is agreeable with talking to his primary care doctor about this. 5. The patient tells me he had a sleep study in the past month and he is awaiting those results. He did have a CAT scan that also showed area of concern. They are going to continue to monitor that. They think it is from a previous pneumonia that he had and they will reevaluate that in the next month or so. 6. We did discuss the patient will return in 1 month again for another refill. We will continue on his current dose for a couple of more months and then decrease him again for his OxyContin to 20 mg b.i.d. and continue his hydrocodone. The patient is agreeable with this. He will be seen in 1-month time period. He will call for an appointment. [facility] [address] [place] [address] PAIN MANAGEMENT CONSULTATION Name: NAZANIN PEREZ Room #: REG CL Aura#: [id number] Admission: 07/14/18 ������������������ Attend Phys: Diane Valverde Discharge: ������������������ Date of : 57 Report #: [id number] Richards did see the patient and collaborated with care today. ��������������������������������������������� <ELECTRONICALLY SIGNED> ���������������������������������������� By: Diane Valverde ��������������������������������������������� 07/15/18 0736 [id number] Diane Valverde /nt
== END ==
LOC: PAIN 06:53
DX: M16.0 Bilateral primary osteoarthritis of hip (principal); J98.4 Other disorders of lung; G47.9 Sleep disorder, unspecified; Z79.891 Long term (current) use of opiate analgesic; Z79.899 Other long term (current) drug therapy

== ENCOUNTER → 2018-09-01 | Outpatient (CLI) | payer OTHER ==
[~2018-09-01] VITALS: Ht 185.4 cm; Wt 117.0 kg
[~2018-09-01] MED LIST changes: +NORCO 10-325 T1 EAC1 PO
[2018-09-01 08:56] VITALS: BP 184/86
--- NOTE | 2018-09-01 09:05 | NUR ---
Pain Clinic Assessment: 1. History of Osteoarthritis: Not Applicable History of Rheumatoid Arthritis: Not Applicable 2. Height: 6 ft. 1 in. 185.4 cm. Weight: 258.0 lb. oz. 117.028 kg. Patient's BMI: 34.0 3. Vital Signs: BP: 184/86 Pulse: 68 Resp: 14 Temp: 02 Sat: 98 ECG Mon: 4. Pain Intensity: 4-5 5. Fall Risk: Dizziness: N Needs help standing or walking: N Fallen in the last 3 months: N Fall risk comments: 0 6. Patient on Blood Thinner: None 7. History of Hypertension: Y 8. Opioid Therapy greater than 6 weeks: Y Opiate Contract Signed: 12/16/15 9. Risk Assessment Tool Provided: mod risk 10. Functional Assessment Tool: 11. Recreational Drug Use: Past greater than 3 mos Drug Type: Tobacco Use: Current Every Day Smoker Tobacco Type: Cigarettes Amount or Packs/day: 1 How Many Years: 45 Alcohol Use: Past use Frequency: Quant:
--- NOTE | 2018-09-05 07:12 | HPC ---
[facility] [address] [place] [address] PAIN MANAGEMENT CONSULTATION Name: NAZANIN PEREZ Artie Room #: [facility] [id number] Admission: 09/01/18 ������������������ Attend Phys: Diane Valverde Discharge: ������������������ Date of : 57 Report #: [id number] THIS REPORT FOR: //name// CC: Diane Valverde Soco Allen DATE OF SERVICE: 09/01/2018 CHIEF COMPLAINT: Osteoarthritis affecting his bilateral hips, wrists and right knee and chronic low back pain. HISTORY OF PRESENT ILLNESS: This is a very pleasant 62-year-old gentleman who returns to the Pain Clinic today for a refill of his medications for his ongoing low back, left hip and right knee pain. He tells me that his pain score is 4-5 today, worse with activity and walking, better with his medication and lying down. He denies problems with constipation. He does tell me he takes some hwqd-mkn-unmprdo laxatives. His blood pressure is elevated today, which has been elevated for the past few months. He did see the zinc etcher and having a stress test and blood work done next week. He tells me he has been enjoying time with his grandson, was able to be outside with him for and feels like he is doing quite well with the current pain medication. He feels like he has adjusted since we decreased his dose in June. ALLERGIES: PENICILLIN. CURRENT MEDICATIONS: OxyContin 30 mg at bedtime, OxyContin 20 mg in the morning, hydrocodone 10/325 up to 4 times a day, diclofenac gel as needed, meloxicam 15 mg p.o. p.r.n., Benicar 40 mg daily, potassium 20 mEq daily, torsemide 20 mg daily, Nicorette p.r.n., Symbicort daily, atorvastatin 40 mg daily, aspirin 81 mg daily, clonazepam 0.5 mg b.i.d., hydrochlorothiazide 25 mg daily, Flonase as needed, amlodipine 40 mg daily, Daliresp 500 mg daily, and Spiriva daily. PQRS: 1. He has osteoarthritis in his bilateral knees, hips and wrist. He denies any rheumatoid arthritis. 2. Height is 6 feet 1 inch, weight is 258, BMI is 34. 3. Vital signs: 184/86, pulse is 68, respirations 14, and oxygen sat is 98. 4. Pain score is 4-5. 5. Fall risk. Denies dizziness. Does not need help walking or standing, has not fallen in the last 3 months. 6. The patient is not on any blood thinners. He does take medicine for hypertension. 7. Opiate therapy is greater than 6 weeks. Therefore, an opiate signed contract is on the chart. His risk assessment tool is moderate. His functional assessment is 39/70. [address] [address] PAIN MANAGEMENT CONSULTATION Name: NAZANIN PEREZ Artie Room #: REG [facility] Aura#: [id number] Admission: 09/01/18 ������������������ Attend Phys: Diane Valverde Discharge: ������������������ Date of : 57 Report #: [id number] 8. Recreational drug use in the past. He is a current smoker, but he is also trying to quit, using Nicorette gum. He denies alcohol use. 9. We did check the prescription monitoring system. The patient is filling appropriately for his narcotics from doctors within our facility. There is a drug screen on the chart within the past year. He tells me he does safeguards his medications. PHYSICAL EXAMINATION: GENERAL: This is a well-developed, well-nourished, well-hydrated 62-year-old gentleman who appears his stated age. He is alert and orientated and his hearing is slightly diminished. HEENT: Normocephalic. Extraocular muscles are intact. Mucous membranes are moist. EXTREMITIES: Lower extremity strength judged to be 5/5 in all major muscle groups. He complains of left hip pain today as well as some right knee pain. He does walk with an antalgic gait. He does also complain of some bilateral hand pain across his knuckles. ASSESSMENT: 1. Chronic hip pain, osteoarthritis involving hips bilaterally, status post hip surgery. 2. Pulmonary disease. 3. Complex medical management under terms of written opioid agreement. 4. Osteoarthritis involving multiple pain generators. We reviewed the fact that opiate medications are being used to provide analgesia adequate to support activities of daily living, not attempting to achieve a specific pain score on the 0-10 Visual Analog Scale. The current opiate medications are providing sufficient analgesia to allow the patient to participate in activities of daily living. The patient is not exhibiting any aberrant behavior suggestive of drug diversion. The patient is not having any adverse reactions to medications. The patient is not suffering from daytime somnolence or mental acuity changes. The patient is managing opiate-induced constipation with appropriate sqrf-duy-fvoxyxt agents and dietary considerations. The patient was counseled on concern for caution with operating a motor vehicle while using opiate medications. A physical exam was performed and the patient's functional status was evaluated. All patients with back pain were advised against the bed rest greater than 4 days and were advised to return to normal activities. Pain score assessment was noted and the treatment plan was reviewed with the patient. All current medications, both prescribed and OTC were reviewed and reconciled on the electronic medical record. Tobacco screening was accomplished and smoking cessation was advised when indicated. BMI was noted and diet/exercise modification was recommended for all patients following outside normal parameters. [facility] [address] [place] [address] PAIN MANAGEMENT CONSULTATION Name: NAZANIN PEREZ Room #: REG [facility].#: [id number] Admission: 09/01/18 ������������������ Attend Phys: Diane Valverde Discharge: ������������������ Date of : 57 Report #: [id number] I reviewed with the patient today their responsibilities to safeguard prescription medications, reviewed their responsibility to utilize medications only as prescribed by the physician. They are to seek and receive pain medications only from 1 physician group ( [facility]). They are to use 1 pharmacy and keep the clinic informed if they change pharmacies. Their responsibilities include making followup visits in a timely fashion and to avoid abrupt discontinuation of medication usage. Their responsibilities further include bringing their medications (bottles from the pharmacy with residual pills) to the visit for possible confirmation of pill counts and the patient understands it is their responsibility to submit to random drug screens to ensure both that the medications prescribed are present, and that no other controlled substances are present. All prescriptions provided today were generated electronically. PLAN: 1. We discussed treatment options with the patient today. The patient has been doing reasonably well with his current medication regimen. I did remind the patient that our goal is to decrease him down slightly from 6 months when we originally decreased his OxyContin. Per the records, we decreased him in June, 6 months from then will be October appointment, we will decrease his OxyContin to 20 mg b.i.d. The patient was reinformed of this again today. He verbalized understanding that he knows it will be difficult, but he says he understands why we need to decrease him based on his high morphine milliequivalent number. Per the CDC guidelines, he does fall at a number of 100 today. 2. Scripts given today for 2-month supply of OxyContin 20 mg, #30; OxyContin 30 mg, #30; hydrocodone 10/325, #120; and diclofenac gel with [address]. [address] Kaiser Richards did see the patient as well today and did look over some old x-rays that the patient did bring in from 2005 just to show his hardware in his hip. 4. The patient will be seen in 2 months' time for an appointment with Dr. Kaiser Richards at that visit. The patient is seen today under the care of Dr. Kaiser Richards, who collaborated and saw the patient today. ��������������������������������������������� <ELECTRONICALLY SIGNED> ���������������������������������������� By: Diane Valverde ��������������������������������������������� 09/05/18 0712 [id number] Diane Valverde /emmanuel
== END ==
LOC: PAIN 06:49
DX: M16.0 Bilateral primary osteoarthritis of hip (principal); M19.032 Primary osteoarthritis, left wrist; M19.031 Primary osteoarthritis, right wrist; M17.11 Unilateral primary osteoarthritis, right knee; J98.4 Other disorders of lung; Z88.0 Allergy status to penicillin; Z79.899 Other long term (current) drug therapy; Z79.891 Long term (current) use of opiate analgesic

== ENCOUNTER → 2018-10-20 | Outpatient (CLI) | payer OTHER ==
[~2018-10-20] VITALS: Ht 185.4 cm; Wt 118.2 kg
[2018-10-20 09:21] VITALS: BP 170/82
--- NOTE | 2018-10-20 09:38 | NUR ---
Pain Clinic Assessment: 1. History of Osteoarthritis: Not Applicable History of Rheumatoid Arthritis: Not Applicable 2. Height: 6 ft. 1 in. 185.4 cm. Weight: 260.6 lb. oz. 118.208 kg. Patient's BMI: 34.4 3. Vital Signs: BP: 170/82 Pulse: 76 Resp: 18 Temp: 02 Sat: 97 ECG Mon: 4. Pain Intensity: 7 5. Fall Risk: Dizziness: N Needs help standing or walking: N Fallen in the last 3 months: N Fall risk comments: 0 6. Patient on Blood Thinner: None 7. History of Hypertension: Y 8. Opioid Therapy greater than 6 weeks: Y Opiate Contract Signed: 12/16/15 9. Risk Assessment Tool Provided: mod risk 10. Functional Assessment Tool: 11. Recreational Drug Use: Past greater than 3 mos Drug Type: Tobacco Use: Current Every Day Smoker Tobacco Type: Cigarettes Amount or Packs/day: 1 How Many Years: Alcohol Use: Past use Frequency: Quant:
--- NOTE | 2018-10-20 15:39 | HPC ---
[facility] [address] [place] [address] PAIN MANAGEMENT CONSULTATION Name: NAZANIN PEREZ Artie Room #: REG [facility]HEASTAmandaAmanda#: [id number] Admission: 10/20/18 ������������������ Attend Phys: Diane Valverde Discharge: ������������������ Date of : 57 Report #: [id number] THIS REPORT FOR: //name// CC: Diane Valverde Soco Allen DATE OF SERVICE: 10/20/2018 CHIEF COMPLAINT: Osteoarthritis affecting hips and right knee and chronic low back pain. HISTORY OF PRESENT ILLNESS: This is a pleasant 62-year-old gentleman who returns to the pain clinic for refill of his medications. He tells me overall he is doing fair. 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 He tells me he uses knee pads now to help prevent additional soreness. He tells me he feels like his gait is getting worse and he does rotate his shoes to try and help with that, so that will also decrease some of his pain. His pain score today is 7/10, worse with walking activity and standing, but the medications and lying down are helpful. Most of his pain is located in his left hip and right knee. He denies any problems with constipation. He tells me his plan is to quit smoking on 11/04/2017, which is his birthday. He has all planned out with some Nicorette gum and a plan to stop on that day. ALLERGIES: PENICILLIN. CURRENT MEDICATIONS: OxyContin 20 mg in the morning, OxyContin 30 mg at night, hydrocodone 10/325 four times a day, Voltaren gel, meloxicam, Benicar, potassium, furosemide, Nicorette gum and spray, atorvastatin, clonazepam, aspirin, hydrochlorothiazide, Flonase, amlodipine, Mucinex, ProAir, Daliresp and Spiriva. PQRS: He has osteoarthritis in his bilateral knees, hips and wrists. Denies any rheumatoid arthritis. Height is 6 feet 1 inch, weight is 260 and BMI is 34. Vital signs 170/82, pulse is 76, respirations 18, oxygen sat is 97 and pain score 7/10. Fall risk. Denies dizziness. He does not need help with walking or standing. He has not fallen in the last 3 months. He is not on any blood thinners but does take medicine for hypertension. His opioid therapy is greater than 6 weeks; therefore, an opiate signed contract is on the chart. His risk assessment is moderate. His functional assessment is 39/70. Recreational drug use in the past. He does smoke about a pack of cigarettes every day and denies any alcohol use. We did check the prescription monitoring system. The patient is due to fill us next week and there is a drug screen on the chart. [address] [address] PAIN MANAGEMENT CONSULTATION Name: ANANAZANIN L Room #: REG DANIEL Chavarria#: [id number] Admission: 10/20/18 ������������������ Attend Phys: Diane Valverde Discharge: ������������������ Date of : 57 Report #: [id number] PHYSICAL EXAMINATION: GENERAL: This is a well-developed, well-nourished, well-hydrated 62-year-old gentleman who appears his stated age. He is alert and orientated, though his hearing is diminished and his pain score is 7/10 today. HEENT: Normocephalic and atraumatic. Extraocular eye muscles are intact. Mucous membranes are moist. EXTREMITIES: Lower extremity strength judged to be 5/5 in all major muscle groups. Complains of right knee pain today. He has an antalgic gait. ASSESSMENT: 1. Chronic hip pain, osteoarthritis involving hips bilaterally, status post hip surgery. 2. Right knee pain. 3. Complex medical management in terms of written opioid agreement and osteoarthritis involving multiple pain generators. We reviewed the fact that opiate medications are being used to provide analgesia adequate to support activities of daily living, not attempting to achieve a specific pain score on the 0-10 Visual Analog Scale. The current opiate medications are providing sufficient analgesia to allow the patient to participate in activities of daily living. The patient is not exhibiting any aberrant behavior suggestive of drug diversion. The patient is not having any adverse reactions to medications. The patient is not suffering from daytime somnolence or mental acuity changes. The patient is managing opiate-induced constipation with appropriate wagl-iwt-afvftlj agents and dietary considerations. The patient was counseled on concern for caution with operating a motor vehicle while using opiate medications. A physical exam was performed and the patient's functional status was evaluated. All patients with back pain were advised against the bed rest greater than 4 days and were advised to return to normal activities. Pain score assessment was noted and the treatment plan was reviewed with the patient. All current medications, both prescribed and OTC were reviewed and reconciled on the electronic medical record. Tobacco screening was accomplished and smoking cessation was advised when indicated. BMI was noted and diet/exercise modification was recommended for all patients following outside normal parameters. I reviewed with the patient today their responsibilities to safeguard prescription medications, reviewed their responsibility to utilize medications only as prescribed by the physician. They are to seek and receive pain medications only from 1 physician group ([facility]). They are to use 1 pharmacy and keep the clinic informed if they change pharmacies. Their responsibilities include making followup visits in a timely fashion and to avoid abrupt discontinuation of medication usage. Their responsibilities further include bringing their medications (bottles from the pharmacy with residual [facility] [address] [place] [address] PAIN MANAGEMENT CONSULTATION Name: NAZANIN PEREZ Room #: REG [facility].#: [id number] Admission: 10/20/18 ������������������ Attend Phys: Diane Valverde Discharge: ������������������ Date of : 57 Report #: [id number] pills) to the visit for possible confirmation of pill counts and the patient understands it is their responsibility to submit to random drug screens to ensure both that the medications prescribed are present, and that no other controlled substances are present. All prescriptions provided today were generated electronically. PLAN: 1. We discussed treatment options with the patient today. We have discussed decreasing him in June after 6 months of being on his current dose that we would decrease his OxyContin again to 20 mg twice a day, placing his current morphine milliequivalent to 100, which is a decrease from 115-100. The patient knew this was the plan and agreed to start that in one month. He thinks that he will be able to decrease that even though he knows it will be hard. He feels overall he will be able to tolerate the decrease in his pain medication. 2. Scripts given today for OxyContin 30 mg once a day and OxyContin 20 mg once a day and second script for OxyContin 20 mg b.i.d. #60 to release in 4 weeks and hydrocodone 10/325, #120 for release today and 4 weeks. 3. The patient has a plan to quit smoking on 11/04/2017, which is his birthday. He has some Nicorette spray and Nicorette gum and has a support group to that he has looked into his plan to be successful in his smoking cessation. We did talk about that his pain should hopefully get better after he has stopped smoking as well. 4. The patient is seen by Dr. Kaiser Richards today who collaborated care. The patient will return in followup in 2 months. ��������������������������������������������� <ELECTRONICALLY SIGNED> ���������������������������������������� By: Diane Valverde ��������������������������������������������� 10/20/18 1539 [id number] Diane Valverde /nt
== END ==
LOC: PAIN 06:49
DX: M16.0 Bilateral primary osteoarthritis of hip (principal); M17.11 Unilateral primary osteoarthritis, right knee; M54.5 Low back pain; G89.29 Other chronic pain; Z79.891 Long term (current) use of opiate analgesic; Z79.899 Other long term (current) drug therapy; Z88.0 Allergy status to penicillin

== ENCOUNTER → 2018-12-08 | Outpatient (CLI) | payer OTHER ==
[~2018-12-08] VITALS: Ht 185.4 cm; Wt 116.8 kg
[~2018-12-08] MED LIST changes: +XTAMPZA ER18 MG PO
[2018-12-08 09:24] VITALS: BP 184/93
--- NOTE | 2018-12-08 09:41 | NUR ---
Pain Clinic Assessment: 1. History of Osteoarthritis: HIPS History of Rheumatoid Arthritis: Not Applicable 2. Height: 6 ft. 1 in. 185.4 cm. Weight: 257.4 lb. oz. 116.756 kg. Patient's BMI: 34.0 3. Vital Signs: BP: 184/93 Pulse: 77 Resp: 14 Temp: 02 Sat: 97 ECG Mon: 4. Pain Intensity: 6 5. Fall Risk: Dizziness: Y Needs help standing or walking: N Fallen in the last 3 months: N Fall risk comments: 0 6. Patient on Blood Thinner: None 7. History of Hypertension: Y 8. Opioid Therapy greater than 6 weeks: Y Opiate Contract Signed: 12/16/15 9. Risk Assessment Tool Provided: mod risk 10. Functional Assessment Tool: 11. Recreational Drug Use: Past greater than 3 mos Drug Type: Tobacco Use: Current Every Day Smoker Tobacco Type: Cigarettes Amount or Packs/day: 1 How Many Years: 45 Alcohol Use: Past use Frequency: Quant:
--- NOTE | 2018-12-09 11:22 | HPC ---
[facility] [address] [place] [address] PAIN MANAGEMENT CONSULTATION Name: NAZANIN PEREZ Artie Room #: REG [facility] Aura#: [id number] Admission: 12/08/18 Attend Phys: Diane Valverde Discharge: Date of : 57 Report #: [id number] THIS REPORT FOR: //name// CC: Diane Valverde Soco Allen DATE OF SERVICE: 12/08/2018 CHIEF COMPLAINT: Osteoarthritis affecting his hips and right knee, low back pain. HISTORY OF PRESENT ILLNESS: This is a 63-year-old gentleman who returns to the pain clinic today for a refill of his medications that he uses to help treat his ongoing low back pain and bilateral hip and right knee pain. He reports his pain score is a 6/10 today of a sharp, stabbing, constant achy pain, worse with activity and walking. 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 He tells me October was a very busy month for him and he did have increased pain. He did tell me it was quite hard month. He also had an infection in his ears that caused him some pain and that was also the month that we decreased his OxyContin from 50 mg per day to 40 mg a day. He reports that he is slowly adjusting to this new medication, but had been a rough month. The patient tells me that he feels he will benefit from this lower dose after he can get some of his other medical conditions as far as his respiratory issues that he is dealing with changing of those medications as well. He is not asking for an increase today. He knows his body will adjust to the new medications. ALLERGIES: PENICILLIN. CURRENT LIST OF MEDICATIONS: Oxycodone ER 20 mg b.i.d., hydrocodone 10/325 q.i.d., diclofenac, Benicar, potassium, torsemide, Nicorette patch, Symbicort, albuterol, atorvastatin, aspirin, clonazepam, hydrochlorothiazide, Flonase, Mucinex, Advair, Daliresp and Spiriva. PQRS: 1. He has osteoarthritis in his bilateral hips, knees and wrists. Denies any rheumatoid arthritis. 2. Height is 6 feet 1 inch. Weight is 257, BMI is 34. 3. Vital signs: Blood pressure 184/93, pulse is 77, respirations 14, oxygen sat is 97. 3. Pain score 6/10. 4. Complains of some dizziness, has not fallen in the last 3 months and does not need any help walking or standing. 5. The patient is not on any blood thinners. He does take medicine for hypertension. 6. Opioid therapy is greater than 6 weeks; therefore, [place] [address] PAIN MANAGEMENT CONSULTATION Name: NAZANIN PEREZ Room #: REG DANIEL Chavarria#: [id number] Admission: 12/08/18 Attend Phys: Diane Valverde Discharge: Date of : 57 Report #: [id number] is on the chart. 7. Risk assessment is moderate. Functional assessment is 39/70. 8. Recreational drug use in the past. He currently smokes about 3/4 of a pack of cigarettes a day and denies any alcohol use. According to the prescription monitoring system, the patient is filling appropriately for his medications. He is due to fill those medications and there is a recent drug screen on the chart as well. PHYSICAL EXAMINATION: GENERAL: This is a well-developed, well-nourished, well-hydrated, 63-year-old gentleman who appears his stated age, placing his current pain score at 6/10 today. He is alert and orientated. HEENT: Normocephalic, atraumatic. Extraocular eye muscles are intact. Mucous membranes are moist. EXTREMITIES: Lower extremity strength judged to be 5/5 in all major muscle groups. Complains of right hip pain today. He has an antalgic gait. Also complains of left hip pain that radiates into his groin. ASSESSMENT: 1. Chronic hip pain, osteoarthritis involving bilateral hips, status post hip surgery multiple times. 2. Right knee pain. 3. Complex medical management under terms of written opioid agreement. 4. Osteoarthritis involving multiple pain generators. We reviewed the fact that opiate medications are being used to provide analgesia adequate to support activities of daily living, not attempting to achieve a specific pain score on the 0-10 Visual Analog Scale. The current opiate medications are providing sufficient analgesia to allow the patient to participate in activities of daily living. The patient is not exhibiting any aberrant behavior suggestive of drug diversion. The patient is not having any adverse reactions to medications. The patient is not suffering from daytime somnolence or mental acuity changes. The patient is managing opiate-induced constipation with appropriate pxxp-xry-xbzuhzw agents and dietary considerations. The patient was counseled on concern for caution with operating a motor vehicle while using opiate medications. A physical exam was performed and the patient's functional status was evaluated. All patients with back pain were advised against the bed rest greater than 4 days and were advised to return to normal activities. Pain score assessment was noted and the treatment plan was reviewed with the patient. All current medications, both prescribed and OTC were reviewed and reconciled on the electronic medical record. Tobacco screening was accomplished and smoking cessation was advised when indicated. BMI was noted and diet/exercise modification was recommended for all patients following outside normal [facility] [address] [place] [address] PAIN MANAGEMENT CONSULTATION Name: NAZANIN PEREZ Room #: REG [facility] [place].#: [id number] Admission: 12/08/18 Attend Phys: Diane MARÍA Nicolle Discharge: Date of : 57 Report #: [id number] parameters. I reviewed with the patient today their responsibilities to safeguard prescription medications, reviewed their responsibility to utilize medications only as prescribed by the physician. They are to seek and receive pain medications only from 1 physician group ( [facility]). They are to use 1 pharmacy and keep the clinic informed if they change pharmacies. Their responsibilities include making followup visits in a timely fashion and to avoid abrupt discontinuation of medication usage. Their responsibilities further include bringing their medications (bottles from the pharmacy with residual pills) to the visit for possible confirmation of pill counts and the patient understands it is their responsibility to submit to random drug screens to ensure both that the medications prescribed are present, and that no other controlled substances are present. All prescriptions provided today were generated electronically. PLAN: 1. We discussed treatment options with the patient today. Again, we discussed smoking cessation. The patient is having increased respiratory issues. He did start a new inhaler, though today he is complaining of difficulty breathing and catching his breath. 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 He will continue to try to decrease his smoking. He had chosen 11/04 to quit smoking, but he continues to smoke 3/4 of a pack a day. We did discuss complications and side effects of smoking along with the interaction with his pain. The patient tells me he will try to pick another date to try and stop his smoking. He is using Nicorette gum and Nicorette patches. 2. We had decreased his medications and has been 1 month since his opioids went from 50 mg of OxyContin to 40 mg a day. The patient explains it was a rough month, but is tolerating it. We will continue him at 40 mg of OxyContin per day for several months and then discuss possible decrease again. Scripts given today for OxyContin 20 mg b.i.d., #60 for today and 4 weeks. 3. Hydrocodone 10/325, #120 for today and 4 weeks. This places the patient at 100 morphine mEq, which is still above the CDC guidelines, but a significant dose decrease over this past year for him. 4. The patient is seen today in collaboration with Dr. Kaiser Richards. He will follow up with care in 2 months. <ELECTRONICALLY SIGNED> By: Diane Valverde 12/09/18 [id number] Diane Valverde /emmanuel
== END ==
LOC: PAIN 06:48
DX: M17.0 Bilateral primary osteoarthritis of knee (principal); M16.0 Bilateral primary osteoarthritis of hip; Z88.0 Allergy status to penicillin; Z79.899 Other long term (current) drug therapy; Z79.891 Long term (current) use of opiate analgesic

== ENCOUNTER → 2019-01-23 | Outpatient (CLI) | payer OTHER ==
[~2019-01-23] VITALS: Ht 185.4 cm; Wt 118.4 kg
[2019-01-23 08:45] VITALS: BP 195/86
--- NOTE | 2019-01-23 08:49 | NUR ---
Pain Clinic Assessment: 1. History of Osteoarthritis: HIPS History of Rheumatoid Arthritis: Not Applicable 2. Height: 6 ft. 1 in. 185.4 cm. Weight: 261.0 lb. oz. 118.389 kg. Patient's BMI: 34.4 3. Vital Signs: BP: 195/86 Pulse: 80 Resp: 16 Temp: 02 Sat: 96 ECG Mon: 4. Pain Intensity: 6 5. Fall Risk: Dizziness: N Needs help standing or walking: N Fallen in the last 3 months: N Fall risk comments: 0 6. Patient on Blood Thinner: None 7. History of Hypertension: Y 8. Opioid Therapy greater than 6 weeks: Y Opiate Contract Signed: 12/16/15 9. Risk Assessment Tool Provided: mod risk-4 10. Functional Assessment Tool: 11. Recreational Drug Use: Past greater than 3 mos Drug Type: Tobacco Use: Current Every Day Smoker Tobacco Type: Amount or Packs/day: How Many Years: Alcohol Use: Past use Frequency: Quant:
--- NOTE | 2019-01-24 11:51 | HPC ---
[facility] [place] [place] [address] PAIN MANAGEMENT CONSULTATION Name: NAZANIN PEREZ Artie [facility] [id number] Admission: 01/23/19 Attend Phys: Diane Valverde Discharge: Date of : 57 Report #: [id number] THIS REPORT FOR: //name// CC: Diane Valverde Soco Allen DATE OF SERVICE: 01/23/2019 CHIEF COMPLAINT: Osteoarthritis affecting his hips and right knee, low back pain. HISTORY OF PRESENT ILLNESS: This is a 63-year-old gentleman who returns to the pain clinic today for refill of his medications that he takes for his ongoing right knee and left hip and groin pain and lower back pain. He rates the pain score is 6/10. It is a sharp, aching, constant pain, worse with activity and walking. His medications are somewhat beneficial, though not as much as before when he was at a higher dose. He explains that he is having a rough time with working and not being able to sleep as well since we have decreased his medication. It has had a significant impact on his function and work ability. He has had to decrease how much he works or does need more assistance with working since we have decreased his OxyContin. The patient is here for a refill, and he understands the need for decreasing and his hopes that we can keep him at his current dose today. ALLERGIES: PENICILLIN. CURRENT LIST OF MEDICATIONS: OxyContin 20 mg b.i.d., hydrocodone 10/325 four times a day, Voltaren gel, Benicar, potassium, torsemide, Nicorette patches and lozenges, Symbicort, Lipitor, aspirin, hydrochlorothiazide, clonazepam, Flonase, Mucinex, ProAir, Daliresp and Spiriva. PQRS: 1. He has osteoarthritis in his bilateral hips, knees, wrists. Denies any rheumatoid arthritis. 2. Height is 6 feet 1 inch, weight is 261. BMI is 34. 3. Vital signs 195/86, pulse is 80, respirations 16, oxygen sat is 96. 4. Pain score 6/10. 5. Denies dizziness, does not need help walking or standing, has not fallen in the last 3 months. 6. The patient is not on any blood thinner, but does take medicine for hypertension. 7. Opiate therapy is greater than 6 weeks; therefore, an opioid signed contract is on the chart. Risk assessment tool is moderate. Functional assessment is 39/70. 8. Recreational drug use in the past. He is a current smoker, though trying to decrease. He is using Nicorette gum and patches [place] [address] PAIN MANAGEMENT CONSULTATION Name: NAZANIN PEREZ Room #: REG DANIEL Chavarria#: [id number] Admission: 01/23/19 Attend Phys: Diane Valverde Discharge: Date of : 57 Report #: [id number] We did check the prescription monitoring system. The patient is filling appropriate for his medications. He is due next week for a refill of his medications and there is a recent drug screen on the chart as well. PHYSICAL EXAMINATION: GENERAL: This is a well-developed, well-nourished, well-hydrated 63-year-old gentleman who appears his stated age, placing his current pain score today at 6/10. HEENT: Normocephalic, atraumatic. Extraocular eye muscles are intact. Mucous membranes are moist. EXTREMITIES: Lower extremity strength judged to be 5/5 in all major muscle groups. He has an antalgic gait. Pain is in his left hip that radiates into his left groin. Also complains of right knee pain. No edema noted. Pain is worse with standing in his hip and knee. He has low back tenderness as well. ASSESSMENT: 1. Chronic hip pain, osteoarthritis involving bilateral hips, status post hip surgeries, multiple surgeries. 2. Right knee pain. 3. Complex medical management in terms of written opioid agreement. 4. Osteoarthritis involving multiple pain generators. We reviewed the fact that opiate medications are being used to provide analgesia adequate to support activities of daily living, not attempting to achieve a specific pain score on the 0-10 Visual Analog Scale. The current opiate medications are providing sufficient analgesia to allow the patient to participate in activities of daily living. The patient is not exhibiting any aberrant behavior suggestive of drug diversion. The patient is not having any adverse reactions to medications. The patient is not suffering from daytime somnolence or mental acuity changes. The patient is managing opiate-induced constipation with appropriate xuht-mdu-dyhiwtn agents and dietary considerations. The patient was counseled on concern for caution with operating a motor vehicle while using opiate medications. A physical exam was performed and the patient's functional status was evaluated. All patients with back pain were advised against the bed rest greater than 4 days and were advised to return to normal activities. Pain score assessment was noted and the treatment plan was reviewed with the patient. All current medications, both prescribed and OTC were reviewed and reconciled on the electronic medical record. Tobacco screening was accomplished and smoking cessation was advised when indicated. BMI was noted and diet/exercise modification was recommended for all patients following outside normal parameters. I reviewed with the patient today their responsibilities to [address] [address] PAIN MANAGEMENT CONSULTATION Name: NAZANIN PEREZ Room #: REG [facility]#: [id number] Admission: 01/23/19 Attend Phys: Diane DANIEL Nicolle Discharge: Date of : 57 Report #: [id number] prescription medications, reviewed their responsibility to utilize medications only as prescribed by the physician. They are to seek and receive pain medications only from 1 physician group ( [facility]). They are to use 1 pharmacy and keep the clinic informed if they change pharmacies. Their responsibilities include making followup visits in a timely fashion and to avoid abrupt discontinuation of medication usage. Their responsibilities further include bringing their medications (bottles from the pharmacy with residual pills) to the visit for possible confirmation of pill counts and the patient understands it is their responsibility to submit to random drug screens to ensure both that the medications prescribed are present, and that no other controlled substances are present. All prescriptions provided today were generated electronically. PLAN: 1. We discussed treatment options with the patient today. I explained to him that I am not sure about OxyContin continuing on the market since [facility]. We will refill his OxyContin today, but if he does have problems filling his prescriptions, he is to call our office and we will transition into a different medication. He has been on methadone, fentanyl, Avinza, MS Contin in the past. We discussed possible rotation to Suboxone. It is a different receptor, I believe, that he may have good relief from this medication. We would use it for his chronic pain, not for addiction or abuse. I reiterated to him that this is a medication that people take for abuse, but he would be using it for chronic pain issues. Scripts written today for his OxyContin 20 mg, #60, for today and 4-week release and his hydrocodone 10/325, #120, for today and 4-week release. 2. [address] does place the patient in 100 morphine mEq. According to the CDC guidelines, this is still high dose, but he has decreased it significantly from 150 morphine mEq over the past year. It is having significant impact with his function, but he has continued to willing to try to decrease his medications. 3. The patient is working on trying to decrease his smoking. He has been using Nicorette gum and Nicorette patches, though he did smoke some yesterday. He will continue to wean off his cigarettes. 4. The patient denies any problems with constipation or overmedication. 5. Dr. Richards did see the patient as well today and collaborated care. The patient will return in 2 months. <ELECTRONICALLY SIGNED> By: Diane Valverde 01/24/19 1151 [id number] Diane Valverde /emmanuel
== END ==
LOC: PAIN 06:45
DX: M17.0 Bilateral primary osteoarthritis of knee (principal); M16.0 Bilateral primary osteoarthritis of hip; Z79.891 Long term (current) use of opiate analgesic; Z88.0 Allergy status to penicillin; Z79.899 Other long term (current) drug therapy

== ENCOUNTER → 2019-03-09 | Outpatient (CLI) | payer OTHER ==
[~2019-03-09] VITALS: Ht 185.4 cm; Wt 117.6 kg
[~2019-03-09] MED LIST changes: +DORYX MPC120 MG PO; +DUONEB; +MOVANTIK25 MG PO; +NICODERM CQ1 EAC1 TRANSDERM; +RAYOS5 MG PO; +VIBRAMYCIN 100100 MG PO
[2019-03-09 08:50] VITALS: BP 199/86
--- NOTE | 2019-03-09 09:00 | NUR ---
Pain Clinic Assessment: 1. History of Osteoarthritis: HIPS History of Rheumatoid Arthritis: Not Applicable 2. Height: 6 ft. 1 in. 185.4 cm. Weight: 259.2 lb. oz. 117.573 kg. Patient's BMI: 34.2 3. Vital Signs: BP: 199/86 Pulse: 70 Resp: 22 Temp: 02 Sat: 98 ECG Mon: 4. Pain Intensity: 6 5. Fall Risk: Dizziness: N Needs help standing or walking: N Fallen in the last 3 months: N Fall risk comments: 0 6. Patient on Blood Thinner: None 7. History of Hypertension: Y 8. Opioid Therapy greater than 6 weeks: Y Opiate Contract Signed: 12/16/15 9. Risk Assessment Tool Provided: mod risk-4 10. Functional Assessment Tool: 11. Recreational Drug Use: Past greater than 3 mos Drug Type: Tobacco Use: Current Every Day Smoker Tobacco Type: Amount or Packs/day: How Many Years: Alcohol Use: Past use Frequency: Quant:
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
== END ==
LOC: PAIN 06:47
DX: M54.5 Low back pain (principal); M16.0 Bilateral primary osteoarthritis of hip; M17.0 Bilateral primary osteoarthritis of knee; Z79.891 Long term (current) use of opiate analgesic

== ENCOUNTER → 2019-04-17 | Outpatient (CLI) | payer OTHER ==
[~2019-04-17] VITALS: Ht 185.4 cm; Wt 113.8 kg
[2019-04-17 09:48] VITALS: BP 150/93
--- NOTE | 2019-04-17 10:26 | NUR ---
Pain Clinic Assessment: 1. History of Osteoarthritis: HIPS History of Rheumatoid Arthritis: Not Applicable 2. Height: 6 ft. 1 in. 185.4 cm. Weight: 250.8 lb. oz. 113.762 kg. Patient's BMI: 33.1 3. Vital Signs: BP: 150/93 Pulse: 76 Resp: 14 Temp: 02 Sat: 97 ECG Mon: 4. Pain Intensity: 7 5. Fall Risk: Dizziness: Y Needs help standing or walking: N Fallen in the last 3 months: N Fall risk comments: 0 6. Patient on Blood Thinner: None 7. History of Hypertension: Y 8. Opioid Therapy greater than 6 weeks: Y Opiate Contract Signed: 12/16/15 9. Risk Assessment Tool Provided: mod risk-4 10. Functional Assessment Tool: 11. Recreational Drug Use: Past greater than 3 mos Drug Type: Tobacco Use: Current Every Day Smoker Tobacco Type: Cigarettes Amount or Packs/day: How Many Years: Alcohol Use: Past use Frequency: Quant:
--- NOTE | 2019-04-18 07:58 | HPC ---
[facility] [place] [address] PAIN MANAGEMENT CONSULTATION Name: NAZANIN PEREZ Room #: REG [facility] [place].#: [id number] Admission: 04/17/19 Attend Phys: Diane Valverde Discharge: Date of : 57 Report #: [id number] THIS REPORT FOR: //name// CC: Diane López MD DATE OF SERVICE: 04/17/2019 CHIEF COMPLAINT: Osteoarthritis of his hips and knees and low back pain. HISTORY OF PRESENT ILLNESS: This is a 63-year-old gentleman who presents today with his significant other, Kiera, who does assist him with his medications here for an appointment for refills of his medications. Per his report, he was in the hospital at the last 4 days with pneumonia. He has some new inhaler and respiratory medicines as well as a Nicoderm patch to try and stop smoking, which we have encouraged for several years. The patient also reports that his pain score is 7/10, which is a fairly average number for him, but he is reporting significant constipation as a result of the change of his opioid medication. The patient is wondering if we are able to rotate him back to OxyContin as he had been on previously and had good efficacy from that medication in controlling his pain in his knees, hips and lower back. I did rotate this medication based on a letter from his insurance company stating they would not cover OxyContin anymore, so we rotated to Xtampza. He has been on that medication for 1 month and having issues with significant constipation since that time. His significant other, Kiera does report that OxyContin will be on his formulary just at a higher here today. They would like to get refills on all other medications. ALLERGIES: PENICILLIN. CURRENT LIST OF MEDICATIONS: NicoDerm CQ patch (does own 5 mg), Vibramycin 100 mg b.i.d., nebulizer, hydrocodone 10/325, Voltaren gel as needed, Benicar 40 mg daily, potassium 20 mEq daily, torsemide 10 mg daily, Symbicort, Lipitor 20 mg daily, aspirin, clonazepam 0.5 mg b.i.d., hydrochlorothiazide 25 mg daily, Flonase, Mucinex, Daliresp 500 mcg daily and Spiriva and Xtampza 18 mg. PQRS: 1. He has known arthritic changes in his hips and knees. Denies any rheumatoid arthritis. 2. Height is 6 feet 1 inch, weight is 250 and BMI is 33. 3. Vital signs 150/93, pulse is 76, respirations 14, oxygen sat is 97. 4. Pain score is 7/10. 5. Complains of dizziness, does not need help walking or standing, has not fallen in the last 3 months. [facility] [address] [place] [address] PAIN MANAGEMENT CONSULTATION Name: NAZANIN PEREZ Artie Room #: REG [facility] Aura#: [id number] Admission: 04/17/19 Attend Phys: Diane Valverde Discharge: Date of : 57 Report #: [id number] 6. The patient is not on any blood thinners, but does take medicine for hypertension. 7. Opioid therapy is greater than 6 weeks; therefore, an opiate signed contract is on the chart. Risk assessment tool is moderate. Functional assessment is 39/70. 8. Recreational drug use in the past, current smoker, trying to quit, is on NicoDerm patches and does not drink alcohol. According to the prescription monitoring system, the patient is filling appropriately for his medications. He is due to fill those for the end of the year. His morphine milliequivalents according to the CDC guidelines are 100 MME per day. This is above the CDC guidelines, but it has been controlled on this medication and we have been tapering him slowly. He does safeguard his medications and there is a recent drug screen on his chart. PHYSICAL EXAMINATION: GENERAL: This is a well-developed, well-nourished, well-hydrated 63-year-old gentleman who appears his stated age, placing his current pain score at 7/10. HEENT: Normocephalic, atraumatic. Extraocular eye muscles are intact. Mucous membranes are moist. LUNGS: Diminished to auscultation. He is slightly shortness of breath with exertion. EXTREMITIES: Pain in his left hip radiates into his groin. He has tenderness in his bilateral knees. Lower extremity strength judged to be 5/5 in all major muscle groups. He has tenderness in his lumbosacral region that does not radiate past his buttocks. He walks with a slightly antalgic gait. ASSESSMENT: 1. Chronic hip pain, osteoarthritis involving bilateral hips, status post surgeries. 2. Bilateral knee pain, right greater than left. 3. Low back pain. 4. Osteoarthritis involving multiple joints. 5. Recent pneumonia continued with antibiotic therapy. 6. Complex medical management under terms of written opioid agreement. 7. Opioid-induced constipation We reviewed the fact that opiate medications are being used to provide analgesia adequate to support activities of daily living, not attempting to achieve a specific pain score on the 0-10 Visual Analog Scale. The current opiate medications are providing sufficient analgesia to allow the patient to participate in activities of daily living. The patient is not exhibiting any aberrant behavior suggestive of drug diversion. The patient is not having any adverse reactions to medications. The patient is not suffering from daytime somnolence or mental acuity changes. The patient is managing opiate-induced constipation with appropriate gcdk-akj-rdcwcrv agents and dietary [facility] [address] [place] [address] PAIN MANAGEMENT CONSULTATION Name: NAZANIN PEREZ Room #: REG [facility].#: [id number] Admission: 04/17/19 Attend Phys: Diane Valverde Discharge: Date of : 57 Report #: [id number] considerations. The patient was counseled on concern for caution with operating a motor vehicle while using opiate medications. PLAN: 1. We discussed treatment options with the patient today. The patient has called into our office as well as discussed today the increase side effects that he had had with Xtampza including mood changes, significant constipation and troubles with urination as well as slight dizziness. He reports that he would like to go back to his OxyContin, which he had been previously stable on. We had rotated him to Xtampza due to changes in his insurance plan, but evidently they are just changing the tear not removing it from the formulary. The patient is willing to pay the difference and the increased here since he this medicine is causing significant side effects. We will rotate him back to OxyContin 20 mg b.i.d., #60 written for today and 4-week release. This may require another prior authorization, which we will attempt to do today. 2. We will continue on his short-acting medicine hydrocodone , #120. Scripts given for today and 4-week release. 3. We discussed his significant constipation. The patient has tried MiraLax, Dulcolax, Colace, senna and milk of magnesia. While in the hospital and at home, he still has continued to have severe constipation issues. We will prescribe Movantik 25 mg. The patient is encouraged to take this once a day for his opioid-induced constipation and then we hope that he will be able to take it only on as needed basis. The patient verbalizes understanding. We did encourage him to increase his liquid intake as well. 4. We did discuss smoking cessation. The patient did not smoke for 3 days while in the hospital. He is on a NicoDerm patch. I explained to him that can be constipating as well, but this is his opportunity to just not continue to smoke since he has gone now 4 days without cigarettes. His significant other has removed all cigarettes and ashtray from the house. 5. The patient is seen in collaboration with Dr. Kaiser Richards. The patient will return in 2 months. <ELECTRONICALLY SIGNED> By: Diane Valverde 04/18/19 [id number] Diane Valverde /emmanuel
== END ==
LOC: PAIN 07:00
DX: M17.0 Bilateral primary osteoarthritis of knee (principal); M16.0 Bilateral primary osteoarthritis of hip; Z79.891 Long term (current) use of opiate analgesic; Z79.899 Other long term (current) drug therapy

== ENCOUNTER → 2019-06-05 | Outpatient (CLI) | payer OTHER ==
[~2019-06-05] VITALS: Ht 185.4 cm; Wt 115.1 kg
[~2019-06-05] MED LIST changes: +VOLTAREN GEL 1100 GM TOP
[2019-06-05 09:27] VITALS: BP 174/87
--- NOTE | 2019-06-05 09:49 | NUR ---
Pain Clinic Assessment: 1. History of Osteoarthritis: HIPS History of Rheumatoid Arthritis: Not Applicable 2. Height: 6 ft. 1 in. 185.4 cm. Weight: 253.8 lb. oz. 115.123 kg. Patient's BMI: 33.5 3. Vital Signs: BP: 174/87 Pulse: 74 Resp: 16 Temp: 02 Sat: 97 ECG Mon: 4. Pain Intensity: 7 5. Fall Risk: Dizziness: N Needs help standing or walking: N Fallen in the last 3 months: N Fall risk comments: 0 6. Patient on Blood Thinner: None 7. History of Hypertension: Y 8. Opioid Therapy greater than 6 weeks: Y Opiate Contract Signed: 12/16/15 9. Risk Assessment Tool Provided: mod risk-4 10. Functional Assessment Tool: 11. Recreational Drug Use: Past greater than 3 mos Drug Type: Tobacco Use: Current Every Day Smoker Tobacco Type: Amount or Packs/day: How Many Years: Alcohol Use: Past use Frequency: Quant:
--- NOTE | 2019-06-07 10:08 | HPC ---
[facility] [place] [address] PAIN MANAGEMENT CONSULTATION Name: NAZANIN PEREZ [facility] [id number] Admission: 06/05/19 Attend Phys: Diane Valverde Discharge: Date of : 57 Report #: [id number] THIS REPORT FOR: cc: Soco Allen Diane C. DO Hocker,Diane DANIEL ~ THIS REPORT FOR: //name// DATE OF SERVICE: 06/05/2019 CHIEF COMPLAINT: Osteoarthritis of his hips and knees and low back pain. HISTORY OF PRESENT ILLNESS: This is a pleasant 63-year-old gentleman who returns to the Pain Clinic today for refill of his medications. Today, he is reporting a pain score of 7/10, located in his lower back, left hip and right knee. It is a constant, aching, occasionally sharp pain, rating at a 7/10 today. It is worse with activity and standing, feels that his medications are beneficial, though he is experiencing significant constipation. He reports that this constipation issue is worsened when we did a trial of Xtampza now he is back on OxyContin and able to have his bowels regulated since this change of medicine. The patient reports that he has been taking Metamucil pills as well as mag citrate even a Dulcolax suppository for his constipation issues. He is going to make an appointment with his primary care doctor and have a colonoscopy, which he has never had before. He believes that maybe his constipation is not related to his opioids. The patient also reports that he is starting a Nicoderm patch today, which we have been encouraging his smoking cessation for quite some time. ALLERGIES: PENICILLIN. CURRENT LIST OF MEDICATIONS: Movantik 25 mg, hydrocodone 10/325 q.i.d. p.r.n., OxyContin 20 mg b.i.d., Nicorette patch, Jacob, diclofenac gel, Benicar, potassium, Symbicort, atorvastatin, aspirin, clonazepam, hydrochlorothiazide, Flonase, Mucinex, Daliresp and Spiriva. PQRS: 1. He has history of osteoarthritis in his hips and knees. Denies any rheumatoid arthritis. 2. Height is 6 feet 1 inch, weight is 253, BMI is 33. 3. Vital signs 174/87, pulse is 74, respirations of 16, oxygen sat is 97. 4. Pain score 7/10. 5. Denies dizziness, does not need help walking or standing, has not fallen in the last 3 months. 6. The patient is not on any blood thinners, but does take medicine for [address] [address] PAIN MANAGEMENT CONSULTATION Name: NAZANIN PEREZ Room #: REG [facility] Aura#: [id number] Admission: 06/05/19 Attend Phys: Diane Valverde Discharge: Date of : 57 Report #: [id number] hypertension. 7. Opioid therapy is greater than 6 weeks; therefore, an opioid signed contract is on the chart. Risk assessment tool is moderate. Functional assessment is 39/70. 8. Recreational drug use in the past, current every day smoker, started Nicoderm patches. Denies alcohol use. According to the prescription monitoring system, the patient is due to fill his medicines next week filling in a timely fashion. According to the CDC guidelines, his morphine mEq per day is 100 mme's per day. PHYSICAL EXAMINATION: GENERAL: This is a well-developed, well-nourished, well-hydrated 63-year-old gentleman who appears his stated age, placing his current pain score at 7/10. HEENT: Normocephalic, atraumatic. Extraocular eye muscles are intact. Mucous membranes are moist. EXTREMITIES: Pain in tenderness in his lower back, radiates into his bilateral knees. His lower extremity strength judged to be 5/5 in all major muscle groups. He walks with an antalgic gait. ASSESSMENT: 1. Chronic hip pain, osteoarthritis involving bilateral hips, status post surgery. 2. Bilateral knee pain. 3. Low back pain. 4. Osteoarthritis involving multiple joints. 5. Opioid-induced constipation. 6. Complex medical management under terms of written opioid agreement. We reviewed the fact that opiate medications are being used to provide analgesia adequate to support activities of daily living, not attempting to achieve a specific pain score on the 0-10 Visual Analog Scale. The current opiate medications are providing sufficient analgesia to allow the patient to participate in activities of daily living. The patient is not exhibiting any aberrant behavior suggestive of drug diversion. The patient is not having any adverse reactions to medications. The patient is not suffering from daytime somnolence or mental acuity changes. The patient is managing opiate-induced constipation with appropriate edeq-ket-hatwczt agents and dietary considerations. The patient was counseled on concern for caution with operating a motor vehicle while using opiate medications. PLAN: 1. The patient feels that his medications are appropriate in controlling his pain. He is being active with his grandson making a snowman recently and being busy around the house. He feels that he would not be able to do these activities without the medications. We will refill his OxyContin 20 mg b.i.d., [address] [address] PAIN MANAGEMENT CONSULTATION Name: NAZANIN PEREZ Room #: REG [facility]#: [id number] Admission: 06/05/19 Attend Phys: Diane Valverde Discharge: Date of : 57 Report #: [id number] #60 for today and 4-week release as well as his hydrocodone 10, #120 for today and 4-week release. These will be sent electronically by Dr. Kaiser Richards who collaborated care and saw the patient as well today. 2. We will refill his Voltaren gel. He finds this beneficial in helping some of his arthritic pain. 3. We did discuss in depth his constipation issues. The patient has been instructed to increase his Metamucil and fiber intake in his diet as well as his water intake, but also instructed to take his Movantik which we had given him every day to see if this is beneficial in having a regular bowel movements. He is going to see his primary care doctor and have a colonoscopy scheduled, which he has not had one done. He has never had constipation issues in the past that have been this severe from his opioids, so he believes it is time for colonoscopy. 4. The patient will return in 2 months. Pt seen in collaboration with Dr Richards. <ELECTRONICALLY SIGNED> By: Diane Valverde 06/07/19 1008 [id number] Diane Valverde /emmanuel
== END ==
LOC: PAIN 06:51
DX: M16.0 Bilateral primary osteoarthritis of hip (principal); M17.0 Bilateral primary osteoarthritis of knee; Z88.0 Allergy status to penicillin; Z79.891 Long term (current) use of opiate analgesic

== ENCOUNTER → 2019-07-27 | Outpatient (CLI) | payer OTHER ==
[~2019-07-27] VITALS: Ht 185.4 cm; Wt 117.8 kg
[~2019-07-27] MED LIST changes: +METAMUCIL FIBE3.4 GM PO
[2019-07-27 09:16] VITALS: BP 168/97
--- NOTE | 2019-07-27 09:30 | NUR ---
Pain Clinic Assessment: 1. History of Osteoarthritis: HIPS History of Rheumatoid Arthritis: Not Applicable 2. Height: 6 ft. 1 in. 185.4 cm. Weight: 259.8 lb. oz. 117.845 kg. Patient's BMI: 34.3 3. Vital Signs: BP: 168/97 Pulse: 82 Resp: 14 Temp: 02 Sat: 96 ECG Mon: 4. Pain Intensity: 7 5. Fall Risk: Dizziness: N Needs help standing or walking: N Fallen in the last 3 months: N Fall risk comments: 0 6. Patient on Blood Thinner: None 7. History of Hypertension: Y 8. Opioid Therapy greater than 6 weeks: Y Opiate Contract Signed: 12/16/15 9. Risk Assessment Tool Provided: mod risk-4 10. Functional Assessment Tool: 11. Recreational Drug Use: Past greater than 3 mos Drug Type: Tobacco Use: Current Every Day Smoker Tobacco Type: Amount or Packs/day: How Many Years: Alcohol Use: Past use Frequency: Quant:
--- NOTE | 2019-07-27 13:48 | HPC ---
[facility] [address] [place] [address] PAIN MANAGEMENT CONSULTATION Name: NAZANIN PEREZ [facility] [id number] Admission: 07/27/19 Attend Phys: Diane Valverde Discharge: Date of : 57 Report #: [id number] THIS REPORT FOR: cc: Soco Allen Diane C. DO Hocker,Diane DANIEL ~ DATE OF SERVICE: 07/27/2019 CHIEF COMPLAINT: Chronic hip and knee pain, low back pain. HISTORY OF PRESENT ILLNESS: This is a pleasant 63-year-old gentleman who returns to the pain clinic for his medication refills that he uses to take for his ongoing chronic left hip pain and right knee pain. Today, he rates his pain score is 7/10, which is an average number for him. It is a sharp, stabbing, constant, aching pain, worse with any activity and walking. He feels the medication and lying down are beneficial in controlling his pain. He reports that some days he has had less pain recently since he has been not working outside the home since if the COVID virus. 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 The patient does report his issues with constipation have been resolved. He is taking Metamucil every day as well as shredded wheat. He is not taking any prescription strength of Movantik that we had prescribed for him. He feels like he is finally in a "better place" as related to his constipation issues. ALLERGIES: PENICILLIN. CURRENT LIST OF MEDICATIONS: Metamucil, diclofenac gel, oxycodone 20 mg b.i.d., hydrocodone 10/325 p.r.n., Nicoderm patch, prednisone, Benicar, potassium, furosemide, Symbicort, Lipitor, aspirin, clonazepam, hydrochlorothiazide, Flonase, Mucinex, Daliresp. PQRS: 1. He has a history of osteoarthritis in his hips and knees. Denies any rheumatoid arthritis. 2. Height is 6 feet 1 inches. Weight is 259, BMI is 34. 3. Vital signs 168/97, pulse is 87, respirations 14, oxygen sat is 96. 4. Pain score is 7/10. 5. Denies dizziness, does not need help walking or standing, has not fallen in the last 3 months. 6. The patient is not on any blood thinners, but does take medicine for hypertension. His opioid therapy is greater than 6 weeks; therefore, an opioid signed contract is on the chart. 7. Risk assessment is moderate. Functional assessment is 39/70. 8. Recreational drug use in the past, current smoker, though trying to decrease [address] [address] PAIN MANAGEMENT CONSULTATION Name: NAZANIN PEREZ Room #: REG DANIEL Chavarria#: [id number] Admission: 07/27/19 Attend Phys: Diane Valverde Discharge: Date of : 57 Report #: [id number] and denies any alcohol use. According to the prescription monitoring system, the patient is filling appropriately for his medications. He is due to fill them in a few days. According to the CDC guidelines, his morphine mEq is 100. He is filling in a timely fashion. There is a drug screen on the chart that is appropriate as well. PHYSICAL EXAMINATION: GENERAL: This is alert and orientated, well-nourished, well-hydrated 63-year-old gentleman who appears his stated age, placing his current pain score at 7/10. HEENT: Normocephalic, atraumatic. Extraocular eye muscles are intact. MUSCULOSKELETAL: He has tenderness in his low back that radiates into his hip to his knee. He walks with a slightly antalgic gait. His lower extremity strength judged to be 5/5 in all major muscle groups with good sensation from L1-S2. ASSESSMENT: 1. Chronic hip pain, osteoarthritis involving bilateral hips, status post hip surgery. 2. Bilateral knee pain. 3. Low back pain. 4. Osteoarthritis involving multiple joints. 5. Complex medical management under terms of written opioid agreement. We reviewed the fact that opiate medications are being used to provide analgesia adequate to support activities of daily living, not attempting to achieve a specific pain score on the 0-10 Visual Analog Scale. The current opiate medications are providing sufficient analgesia to allow the patient to participate in activities of daily living. The patient is not exhibiting any aberrant behavior suggestive of drug diversion. The patient is not having any adverse reactions to medications. The patient is not suffering from daytime somnolence or mental acuity changes. The patient is managing opiate-induced constipation with appropriate gvyj-boa-ifjttyn agents and dietary considerations. The patient was counseled on concern for caution with operating a motor vehicle while using opiate medications. A physical exam was performed and the patient's functional status was evaluated. All patients with back pain were advised against the bed rest greater than 4 days and were advised to return to normal activities. Pain score assessment was noted and the treatment plan was reviewed with the patient. All current medications, both prescribed and OTC were reviewed and reconciled on the electronic medical record. Tobacco screening was accomplished and smoking cessation was advised when indicated. BMI was noted and diet/exercise modification was recommended for all patients following outside normal [address] [address] PAIN MANAGEMENT CONSULTATION Name: NAZANIN PEREZ Room #: REG [facility]#: [id number] Admission: 07/27/19 Attend Phys: Diane Nguyenchristine Discharge: Date of : 57 Report #: [id number] parameters. I reviewed with the patient today their responsibilities to safeguard prescription medications, reviewed their responsibility to utilize medications only as prescribed by the physician. They are to seek and receive pain medications only from 1 physician group ( [facility]). They are to use 1 pharmacy and keep the clinic informed if they change pharmacies. Their responsibilities include making followup visits in a timely fashion and to avoid abrupt discontinuation of medication usage. Their responsibilities further include bringing their medications (bottles from the pharmacy with residual pills) to the visit for possible confirmation of pill counts and the patient understands it is their responsibility to submit to random drug screens to ensure both that the medications prescribed are present, and that no other controlled substances are present. All prescriptions provided today were generated electronically. PLAN: 1. We discussed treatment options with the patient today. The patient finds his medication very beneficial. He feels that his current regimen is helping him though his pain score remains the same. We will refill his OxyContin 20 mg, #60 for today and 4-week release as well as his hydrocodone 10/325, #120 for today and 4-week release. These will be sent electronically by Dr. Kaiser Richards. 2. We discussed the patient's previous complaints of opioid-induced constipation. He is now currently taking Metamucil and shredded wheat on a daily basis. No uqxm-col-vqlmllk medicines. No prescription medicines. He feels like his bowel regimen is now under control. 3. We discussed the COVID-19 and how it may possibly disrupt the supply chain of opioids. The patient encouraged to take the lowest most effective dose on days, trying to take less medications if he is able to have a small supply at home. We are hopeful that there will be no disruption, but we are unsure and we are trying to encourage replacements to plan ahead to prevent any withdrawal symptoms. The patient verbalizes understanding. He will work towards those goals. 4. The patient is seen in collaboration with Dr. Kaiser Richards. <ELECTRONICALLY SIGNED> By: Diane Valverde 07/27/19 1348 1120 1202 Diane Valverde /nt
== END ==
LOC: PAIN 06:47
DX: M16.0 Bilateral primary osteoarthritis of hip (principal); M25.561 Pain in right knee; M25.562 Pain in left knee; M54.5 Low back pain; M19.90 Unspecified osteoarthritis, unspecified site; F11.20 Opioid dependence, uncomplicated; Z88.0 Allergy status to penicillin; Z79.899 Other long term (current) drug therapy

== ENCOUNTER → 2019-09-18 | Outpatient (CLI) | payer OTHER ==
[~2019-09-18] MED LIST changes: +TRELEGY ELLIPT1 EACH INH
--- NOTE | 2019-09-19 07:59 | HPC ---
[facility] [place] [place] [address] PAIN MANAGEMENT CONSULTATION Name: NAZANIN PEREZ Room #: REG [facility].#: [id number] Admission: 09/18/19 Attend Phys: Diane Valverde Discharge: Date of : 57 Report #: [id number] THIS REPORT FOR: cc: Soco Allen,Soco Sampson,Diane DANIEL ~ CC: Kaiser Richards MD DATE OF SERVICE: 09/18/2019 This is a TeleMed appointment from 9:40 to 9:55 via the audiovisual telephone due to the patient's respiratory issues during this COVID outbreak. CHIEF COMPLAINT: Chronic hip pain, knee pain and low back pain. HISTORY OF PRESENT ILLNESS: This is a very pleasant gentleman of 63 years old that I am speaking with for a TeleMed appointment that he has consented for. The patient has severe respiratory COPD as well as cares for a that has multiple sclerosis, so he is choosing to stay at home during this outbreak for this visit. The patient is reporting a pain score of 5/10. He feels that is slightly lower than his normal pain since he has been less active during this time of the COVID virus. 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 He will occasionally go to the store, but most often he has been at home, so therefore his pain has decreased. The patient does report though that his anxiety has increased during this outbreak. He continues to try and decrease his smoking, but smoking per his report decreases his anxiety. The patient states that his pain is a constant, aching pain that is worse with walking, standing, activity, but better with his medication as well as lying down and sitting. He denies any problems with constipation and does not need his Movantik refilled today. ALLERGIES: PENICILLIN. CURRENT LIST OF MEDICATIONS: Metamucil, Voltaren gel p.r.n., OxyContin 20 mg b.i.d., hydrocodone 10/325 q.i.d. p.r.n., Nicoderm nicotine patches, prednisone, Benicar, potassium, torsemide, Symbicort, Lipitor, aspirin, clonazepam, hydrochlorothiazide, Flonase, Mucinex, Daliresp and Spiriva. PQRS: 1. He has a history of osteoarthritis in his hips and hands. Denies any rheumatoid arthritis. 2. Height, weight and vital signs were deferred today due to a TeleMed appointment. 3. Pain score is 5/10. 4. Denies dizziness, does not need help walking or standing, has not fallen in the last [address] [address] PAIN MANAGEMENT CONSULTATION Name: NAZANIN PEREZ Room #: REG [facility] Chavarria#: [id number] Admission: 09/18/19 Attend Phys: Diane Valverde Discharge: Date of : 57 Report #: [id number] 5. The patient is not on any blood thinners, but does take medicine for hypertension. 6. Opioid therapy is greater than 6 weeks; therefore, an opioid signed contract is on the chart. Risk assessment is moderate. Functional assessment is 39/70. 7. Recreational drug use in the past. He is a current smoker, trying to decrease and he does drink alcohol occasionally. According to the prescription monitoring system, the patient is filling appropriately. He is due to fill his medications this week. According to the CDC guidelines, his morphine milliequivalent is 100 morphine mEq. We will recheck a random drug screen on him at his next appointment. PHYSICAL EXAMINATION: Is a review of systems. This is alert and orientated 63-year-old gentleman who is answering all of my questions appropriately today and in complete sentences rating his pain score at 5/10. He reports a tenderness in his lower back that radiates into his hip and knees and tenderness in his hands due to his arthritic changes. ASSESSMENT: 1. Chronic hip pain, osteoarthritis involving bilateral hips, status post hip surgery. 2. Bilateral knee pain. 3. Low back pain. 4. Osteoarthritis involving multiple joints. 5. Chronic obstructive pulmonary disease. 6. Complex medical management under terms of written opioid agreement. 7. Tobacco habituation, trying to decrease. We reviewed the fact that opiate medications are being used to provide analgesia adequate to support activities of daily living, not attempting to achieve a specific pain score on the 0-10 Visual Analog Scale. The current opiate medications are providing sufficient analgesia to allow the patient to participate in activities of daily living. The patient is not exhibiting any aberrant behavior suggestive of drug diversion. The patient is not having any adverse reactions to medications. The patient is not suffering from daytime somnolence or mental acuity changes. The patient is managing opiate-induced constipation with appropriate xagu-yzn-mobvmhh agents and dietary considerations. The patient was counseled on concern for caution with operating a motor vehicle while using opiate medications. PLAN: 1. We discussed treatment options with the patient today. The patient feels that his current regimen of pain medications are beneficial. We will continue his OxyContin 20 mg, #60 for today and 4 weeks supply as well as hydrocodone 10/325, #120 for today and 4 weeks supply. These will be sent electronically by Dr. Kaiser Richards. [address] [address] PAIN MANAGEMENT CONSULTATION Name: NAZANIN PEREZ Room #: REG [facility]#: [id number] Admission: 09/18/19 Attend Phys: Diane Valverde Discharge: Date of : 57 Report #: [id number] 2. The patient denies a need for Movantik. He feels that the diet changes as well as Metamucil have been keeping his constipation under control. 3. We did discuss the COVID outbreak encouraging him to try to quit smoking along with his respiratory issues. He is a higher risk if he is exposed to COVID-19 if he would become infected. The patient verbalizes understanding. He is trying to decrease smoking, but during this stressful time, he finds that he has actually increased slightly. 4. We will recheck a urine drug screen at his next appointment to be done by Dr. Kaiser Richards who collaborated care with this patient today. <ELECTRONICALLY SIGNED> By: Diane Valverde 09/19/19 0759 1342 1523 Diane Valverde /emmanuel
== END ==
LOC: TELEPC 06:55 → PAIN 10:00 → TELEPC 10:02
DX: M25.551 Pain in right hip (principal); M25.552 Pain in left hip; G89.29 Other chronic pain; J44.9 Chronic obstructive pulmonary disease, unspecified; Z79.891 Long term (current) use of opiate analgesic

== ENCOUNTER → 2019-11-09 | Outpatient (CLI) | payer OTHER ==
[~2019-11-09] VITALS: Ht 185.4 cm; Wt 116.2 kg
[~2019-11-09] MED LIST changes: +NICOTINE LOZENGE4 MG BUCCAL
[2019-11-09 09:48] VITALS: BP 191/83
--- NOTE | 2019-11-09 10:07 | NUR ---
Pain Clinic Assessment: 1. History of Osteoarthritis: HIPS B/L KNEES B/L HANDS History of Rheumatoid Arthritis: Not Applicable 2. Height: 6 ft. 1 in. 185.4 cm. Weight: 256.2 lb. oz. 116.212 kg. Patient's BMI: 33.8 3. Vital Signs: BP: 191/83 Pulse: 65 Resp: 18 Temp: 02 Sat: 97 ECG Mon: 4. Pain Intensity: 6 5. Fall Risk: Dizziness: N Needs help standing or walking: N Fallen in the last 3 months: N Fall risk comments: 0 6. Patient on Blood Thinner: None 7. History of Hypertension: Y 8. Opioid Therapy greater than 6 weeks: Y Opiate Contract Signed: 12/16/15 9. Risk Assessment Tool Provided: MODERATE RISK 08/07 10. Functional Assessment Tool: 11. Recreational Drug Use: Past greater than 3 mos Drug Type: Tobacco Use: Current Every Day Smoker Tobacco Type: Cigarettes Amount or Packs/day: 1 PACK/DAY How Many Years: Alcohol Use: Past use Frequency: Quant:
--- NOTE | 2019-11-10 08:36 | HPC ---
[address] [place] [address] PAIN MANAGEMENT CONSULTATION Name: NAZANIN PEREZ [facility] #: [facility] [id number] Admission: 11/09/19 Attend Phys: Diane Valverde Discharge: Date of : 57 Report #: [id number] THIS REPORT FOR: cc: Soco Allen Diane C. DO Hocker,Diane DANIEL ~ CC: Diane Richards MD DATE OF SERVICE: 11/09/2019 CHIEF COMPLAINT: Chronic hip pain, right knee pain and ongoing low back pain. HISTORY OF PRESENT ILLNESS: This is a 64-year-old gentleman who is well known to the pain clinic returning today for a refill of his medications that he uses to help treat his ongoing left hip pain and right knee pain. He does have some ongoing low back pain that is problematic at times. Today, he is reporting that his pain score is a 6/10, which is slightly elevated. He felt that his foot was becoming more problematic on his right side. He did get new shoes and then replaced his inserts. He feels that did relieve his foot pain and felt he is walking straighter, which then did increase his hip pain. So overall, he is rating his pain score at 6/10, which is slightly elevated for him. He feels that activity walking and kneeling at his job are problematic for him, but lying down and sitting as well as his medications are beneficial. He denies any problems with constipation or daytime somnolence as a result of his opioid medications. He is requesting refills today. The patient is very nervous about being out in public due to the COVID virus. He does have significant respiratory issues. He is wearing a mask at all times. He does not go to grocery stores and he says at work he is trying to stay out of people homes. ALLERGIES: PENICILLIN. CURRENT LIST OF MEDICATIONS: Nicotine lozenges, OxyContin 20 mg b.i.d., hydrocodone 10/325 q.i.d. p.r.n., Voltaren gel p.r.n., Metamucil, NicoDerm CQ patches, Benicar, potassium, torsemide, Lipitor, aspirin, clonazepam, hydrochlorothiazide, Flonase, Mucinex and Daliresp. PATIENT'S PQRS: 1. He has a history of osteoarthritis in his hips, knees and hands. Denies any rheumatoid arthritis. 2. Height is 6 feet and 1 inch, weight is 256, BMI is 33. 3. Vital signs: 191/83, pulse is 65, respirations 18, oxygen sat is 97. 4. Pain score is 6/10. 5. Denies dizziness, does not need help walking or standing, [place] [address] PAIN MANAGEMENT CONSULTATION Name: NAZANIN PEREZ Room #: REG DANIEL Chavarria#: [id number] Admission: 11/09/19 Attend Phys: Diane Valverde Discharge: Date of : 57 Report #: [id number] the last 3 months. 6. The patient is not on any blood thinners, but does take medicine for hypertension, though it is still elevated today. 7. Opiate therapy is greater than 6 weeks; therefore, an opioid signed contract is on the chart. Risk assessment is moderate. Functional assessment is 44/70. 8. Recreational drug use in the past. He is a current smoker, though trying to quit. He does not drink alcohol. According to the prescription monitoring system, the patient is due to fill his medications this week, filling them in a timely fashion. We will check a random drug screen on this patient today as it has been greater than one year. PHYSICAL EXAMINATION: GENERAL: This is alert and orientated, well-developed, well-nourished 64-year-old gentleman who appears his stated age, placing his current pain score at 6/10. HEENT: Normocephalic, atraumatic. Extraocular eye muscles are intact. He is wearing a mask. MUSCULOSKELETAL: He has tenderness in his low back that radiates into his bilateral hips to his knee, does have an antalgic gait, does have some increased foot pain with ambulation of his right foot. He has some arthritic joints in his bilateral hands. ASSESSMENT: 1. Chronic hip pain with osteoarthritis involving bilateral hips, status post hip surgery. 2. Bilateral knee pain. 3. Low back pain. 4. Osteoarthritis involving multiple joints of hands, back, hips and knees. 5. Hypertension, on medications, though continues to be elevated. 6. Complex medical management under terms of written opioid agreement. We reviewed the fact that opiate medications are being used to provide analgesia adequate to support activities of daily living, not attempting to achieve a specific pain score on the 0-10 Visual Analog Scale. The current opiate medications are providing sufficient analgesia to allow the patient to participate in activities of daily living. The patient is not exhibiting any aberrant behavior suggestive of drug diversion. The patient is not having any adverse reactions to medications. The patient is not suffering from daytime somnolence or mental acuity changes. The patient is managing opiate-induced constipation with appropriate srlt-mxu-ctevwwa agents and dietary considerations. The patient was counseled on concern for caution with operating a motor vehicle while using opiate medications. PLAN: 1. We discussed treatment options with the patient today. The patient finds [address] [address] PAIN MANAGEMENT CONSULTATION Name: NAZANIN PEREZ Room #: REG DANIEL Chavarria#: [id number] Admission: 11/09/19 Attend Phys: Diane Valverde Discharge: Date of : 57 Report #: [id number] his medications beneficial. We will refill his OxyContin 20 mg, #60 for today and 4-week release as well as his hydrocodone 10/325, #120 for today and 4-week release. These will be sent electronically by Dr. Kaiser Richards. 2. We did talk about his hypertension. He continues to have an elevated blood pressure at 191/83 despite medications. I encouraged him to continue to check this at home. He thinks it is because he is nervous about being out due to the COVID virus. It continues to be elevated despite his medications. I have encouraged him to talk to his primary care doctor. 3. The patient is trying to quit smoking. He is on Nicorette gum as well as Nicoderm CQ patches. I encouraged him to set a date to stop smoking altogether. The patient is hopeful to do that within the next 2 months. The patient was seen in collaboration with Dr. Kaiser Richards who he will see at his next visit. We did check a random drug screen on this patient today. <ELECTRONICALLY SIGNED> By: Diane Valverde 11/10/19 0836 1038 Radha chris
== END ==
LOC: PAIN 11-07 09:10
PROVIDERS: ATTEND Clinical Nurse Specialist Adult Health
DX: M16.0 Bilateral primary osteoarthritis of hip (principal); M17.0 Bilateral primary osteoarthritis of knee; M19.042 Primary osteoarthritis, left hand; M19.041 Primary osteoarthritis, right hand; Z79.899 Other long term (current) drug therapy

== ENCOUNTER → 2020-01-01 | Outpatient (CLI) | payer OTHER ==
[~2020-01-01] VITALS: Ht 185.4 cm; Wt 117.8 kg
[~2020-01-01] MED LIST changes: +HYDROCODON-ACE1 EAC5 PO
--- NOTE | ~2020-01-01 | HPC ---
[facility] [place] [address] PAIN MANAGEMENT CONSULTATION Name: NAZANIN PEREZ Room #: REG [facility] Aura#: [id number] Admission: 01/01/20 Attend Phys: Kaiser Richards MD Discharge: Date of : 57 Report #: [id number] THIS REPORT FOR: cc: Soco Allen,Kaiser Thrasher MD ~ CC: Soco López DATE OF SERVICE: 01/01/2020 Follow up visit for chronic intractable pain and management with high-dose opioid therapy. The patient is here today for a followup. I provided medications for him under terms of written opioid agreement. I did not initiate his therapy. That was initiated in the mid 1999s shortly after his second hip surgery. Dr. Herrmann originally prescribed his medications. He was later then seen by Dr. Pollo Gillis, who prescribed medicines for him a number of years. When Dr. Gillis left [facility], he was left to my clinic. At that time, he was on over 130-140 MME of oxycodone and hydrocodone taken as a baseline and breakthrough combination. We have been slowly tapering his medicines and I have encouraged him to continue thinking about tapering his medicines further. He complains of 2 separate pains; the first is the left hip. In 1999, he had a hip replacement. Eventually, broke down just 6 years later and performed surgery in 2005. He has had pain in that hip ever since. Pain is worse with standing and walking, difficulty with kneeling. His second pain is in his right heel. He says it constantly feels as though there is a needle in the back of his calcaneus. There is no underlying trauma. There may be inflammation of some sort. Either Achilles tendinitis or perhaps a plantar fasciitis. He finds that weightbearing is also the most severe for that pain. He is now well established on opioids and tapering is difficult. We had a lengthy discussion today about medications and the treatment of chronic intractable pain. He tries to take it on a schedule. He does not deviate. Medications provided monthly, generally lasting to full 30 days. He safeguards his medication and is grateful for the fact that he has no side effects. I have reviewed his opioid agreement in some detail. I also spent 5 minutes reviewing his prescription drug monitoring program information from [facility]. There are no unexpected entries. Although he does have clonazepam in his list as well, prescribed by his primary care physician, Dr. Allen. We discussed the [address] [address] PAIN MANAGEMENT CONSULTATION Name: SELENEISATUNAZANIN ELLINGTON Room #: REG Richar Chavarria#: [id number] Admission: 01/01/20 Attend Phys: Kaiser Richards MD Discharge: Date of : 57 Report #: [id number] benzodiazepine and opioid interaction, which is safe in his case. It is proven that he can take it without causing himself any harm, but he must absolutely make sure that his medications are safeguarded and kept away from others since they can be deadly in the wrong hands. All medications were reviewed and reconciled. He is on Nicoderm patches and continues to smoke. I have discussed at length today the importance of healthy living including weight loss, exercise, avoiding fatty foods, alcohol and most importantly quitting tobacco. If he does so, then I think his pain will be better. We had a long healthy discussion about healthy lifestyle activities. PHYSICAL EXAMINATION: GENERAL: He is a pleasant gentleman. He is wearing a mask due to COVID restrictions. VITAL SIGNS: His blood pressure 190/80, heart rate 64, respirations 16, O2 sat is 97. BMI is 34.3. MUSCULOSKELETAL: Moves independently from sitting to standing position and has difficulty with straightening. His back is mildly tender. He has tenderness on his left hip. Pain with internal and external rotation. Scars are present. He also has pain around his right calcaneus. There is no swelling, inflammation, redness or spurring noted in any of the joints of the ankle. IMPRESSION: 1. Chronic intractable pain with prior hip replacement, complications and then a revision in 2005. 2. Chronic pain in the right heel, possibly fasciitis or Achilles tendinitis. PLAN: I am going to go ahead and renew his medications for him on a bimonthly basis and we will continue to follow with urine drug screens. His MME is high at 106. This is considered high-dose opioid therapy and he will need to be seen more frequently. He did complain that urine drug screen performed was charged to him $1700!. I reviewed the drug screen and remarkably the company that sent out the bill, billed separately for each component. Medicare allowable appears to have been over $500, ten times his office visit today. We will continue to follow the CDC guidelines, which require for high-dose opioid patients intermittent drug screening. Fortunately, we have seen no red flag behaviors or any indication he is misusing his medicine. Time spent with patient is 30 minutes. By: [id number] Kaiser Richards MD /nt
[2020-01-01 09:18] VITALS: BP 190/80
== END ==
LOC: PAIN 06:55
PROVIDERS: ATTEND Anesthesiology Pain Medicine
DX: G89.29 Other chronic pain (principal); M79.671 Pain in right foot; Z96.641 Presence of right artificial hip joint; F11.20 Opioid dependence, uncomplicated

== ENCOUNTER → 2020-02-22 | Outpatient (CLI) | payer OTHER ==
[~2020-02-22] VITALS: Ht 185.4 cm; Wt 117.8 kg
[2020-02-22 08:52] VITALS: BP 159/93
--- NOTE | 2020-02-22 09:14 | NUR ---
Pain Clinic Assessment: 1. History of Osteoarthritis: HIPS B/L KNEES B/L HANDS History of Rheumatoid Arthritis: Not Applicable 2. Height: 6 ft. 1 in. 185.4 cm. Weight: 259.8 lb. oz. 117.845 kg. Patient's BMI: 34.3 3. Vital Signs: BP: 159/93 Pulse: 80 Resp: 18 Temp: 02 Sat: 97 ECG Mon: 4. Pain Intensity: 5 5. Fall Risk: Dizziness: N Needs help standing or walking: N Fallen in the last 3 months: N Fall risk comments: 0 6. Patient on Blood Thinner: None 7. History of Hypertension: Y 8. Opioid Therapy greater than 6 weeks: Y Opiate Contract Signed: 12/16/15 9. Risk Assessment Tool Provided: MODERATE RISK 08/07 10. Functional Assessment Tool: 11. Recreational Drug Use: Past greater than 3 mos Drug Type: Tobacco Use: Current Every Day Smoker Tobacco Type: Cigarettes Amount or Packs/day: 1/2 ppd How Many Years: 45 Alcohol Use: Past use Frequency: Quant:
--- NOTE | 2020-02-23 07:28 | HPC ---
[facility] [place] [address] PAIN MANAGEMENT CONSULTATION Name: NAZANIN PEREZ Room #: REG [facility] PaytonAmanda#: [id number] Admission: 02/22/20 Attend Phys: Diane Valverde Discharge: Date of : 57 Report #: [id number] CC: Diane Richards MD DATE OF SERVICE: 02/22/2020 CHIEF COMPLAINT: Chronic intractable pain, low back pain and hip pain. HISTORY OF PRESENT ILLNESS: This is a pleasant 64-year-old gentleman who is well known to the pain clinic. Today, he is here for a refill of his opioid medications that he has been on for several years, finding that most beneficial in helping his low back pain as well as his left hip and right knee pain. Today, he is reporting this is a 5/10. There is a burning, aching pain, worse with prolonged activity, kneeling and walking long distance. He believes the medications are very beneficial in helping decreases pain with very minimal side effects. He does safeguard his meds at all times. The patient does report he is trying to decrease his smoking. He is down to 10 cigarettes a day and does use Nicorette lozenges, though after several of those throughout the day, he develops hiccups per his report. He recently had blood work and CAT scan of his lungs through his primary care doctor and it does continue to show moderate emphysema, so he is trying to quit, but does not have a goal date to completely stop his smoking. Today, he would like refills of his medications. ALLERGIES: PENICILLIN. CURRENT LIST OF MEDICATIONS: Hydrocodone 10/325 p.r.n., OxyContin 20 mg b.i.d. Nicorette lozenges, diclofenac gel, Metamucil, Benicar, potassium, furosemide, Lipitor, aspirin, clonazepam, hydrochlorothiazide, Flonase, Mucinex and Daliresp. PQRS: 1. He has osteoarthritic changes in his hips, knees and hands. Denies any rheumatoid arthritis. 2. Height is 6 feet 1 inch, weight is 259, BMI is 34. 3. Vital signs 159/93, pulse is 80, respirations 18, oxygen sat is 97. 4. Pain score is 5/10. 5. Denies dizziness, does not need help walking or standing, has not fallen in the last 3 months. 6. The patient is not on any blood thinners, but does take medicine for hypertension. 7. Opioid therapy is greater than 6 weeks; therefore, an opioid signed contract is on the chart. Risk assessment is moderate. Functional assessment is 44/70. 8. Recreational drug use in the past. He is a current smoker of 10 cigarettes a day. 9. Denies alcohol use. According to the prescription monitoring system, the patient is filling appropriately for his medications, though he is on a high morphine mEq according to the CDC guidelines of 110 MMEs per day. We have decreased his medicines over the years, which has been difficult, but he has plateaued at his current level. He does take a benzodiazepine that is well-monitored from his primary doctor as well. PHYSICAL EXAMINATION: GENERAL: This is a pleasant gentleman. He is alert and orientated, answering my questions appropriately, rating his pain score at 5/10 today. HEENT: Normocephalic, atraumatic. Extraocular eye muscles are intact. He is wearing a mask. MUSCULOSKELETAL: He moves from the sitting to standing position using the armrest. He has an antalgic gait. Tenderness in his lower sacral region that does radiate into his left hip. Pain is worse with internal and external rotation of his left hip and in his right calcaneus with slight edema of 1+ noted. Lower extremity strength is symmetrical at 5/5. He does have an antalgic gait. IMPRESSION: 1. Chronic intractable pain, prior hip replacement. 2. Chronic pain in his right heel. 3. Hypertension. 4. Osteoarthritis involving multiple joints of hands, back, knees and hips. 5. Complex medical management utilizing opioid medications. We reviewed the fact that opiate medications are being used to provide analgesia adequate to support activities of daily living, not attempting to achieve a specific pain score on the 0-10 Visual Analog Scale. The current opiate medications are providing sufficient analgesia to allow the patient to participate in activities of daily living. The patient is not exhibiting any aberrant behavior suggestive of drug diversion. The patient is not having any adverse reactions to medications. The patient is not suffering from daytime somnolence or mental acuity changes. The patient is managing opiate-induced constipation with appropriate snxo-hkg-[id number] agents and dietary considerations. The patient was counseled on concern for caution with operating a motor vehicle while using opiate medications. PLAN: 1. We discussed treatment options with the patient today. We had a lengthy discussion of smoking cessation, encouraging him to pick a date and stop his smoking, especially with his continued emphysema issues and has had a history of pneumonia as well. The patient continues his nicotine lozenges and I also encouraged him just to eat hard candy if he has issues with hiccups from his lozenges. The patient states he will try to decrease even further before our next visit. He reports not carrying any cigarettes with him, which is an improvement in his previous habits. 2. The patient will continue on his OxyContin 20 mg b.i.d. and hydrocodone 10/325. These will be sent electronically for 2 months to his local pharmacy by Dr. Kaiser Richards. 3. We did discuss his high blood pressure, again encouraging him to monitor this on a regular basis. His primary care doctor has been adjusting his medications and he is taking it daily at home. It was still elevated today and he is seeing his primary care doctor next week in regards to this patient. The patient is seen today in collaboration with Dr. Kaiser Richards. <ELECTRONICALLY SIGNED> By: Diane Valverde 02/23/20 0728 [id number] [id number] Diane Valverde /nt
== END ==
LOC: PAIN 06:49
PROVIDERS: ATTEND Clinical Nurse Specialist Adult Health
DX: G89.4 Chronic pain syndrome (principal); I10 Essential (primary) hypertension; M19.90 Unspecified osteoarthritis, unspecified site; Z88.0 Allergy status to penicillin; Z79.891 Long term (current) use of opiate analgesic; Z79.82 Long term (current) use of aspirin

== ENCOUNTER → 2020-04-18 | Outpatient (CLI) | payer OTHER ==
[~2020-04-18] VITALS: Ht 185.4 cm; Wt 121.6 kg
[~2020-04-18] MED LIST changes: +NORVASC5 M1 PO
[2020-04-18 09:24] VITALS: BP 156/88
--- NOTE | 2020-04-18 09:40 | NUR ---
Pain Clinic Assessment: 1. History of Osteoarthritis: HIPS B/L KNEES B/L HANDS History of Rheumatoid Arthritis: Not Applicable 2. Height: 6 ft. 1 in. 185.4 cm. Weight: 268.0 lb. oz. 121.564 kg. Patient's BMI: 35.4 3. Vital Signs: BP: 156/88 Pulse: 85 Resp: 16 Temp: 02 Sat: 97 ECG Mon: 4. Pain Intensity: 4 TO 5 5. Fall Risk: Dizziness: N Needs help standing or walking: N Fallen in the last 3 months: N Fall risk comments: 0 6. Patient on Blood Thinner: None 7. History of Hypertension: Y 8. Opioid Therapy greater than 6 weeks: Y Opiate Contract Signed: 12/16/15 9. Risk Assessment Tool Provided: MODERATE RISK 08/07 10. Functional Assessment Tool: 11. Recreational Drug Use: Past greater than 3 mos Drug Type: Tobacco Use: Current Every Day Smoker Tobacco Type: Cigarettes Amount or Packs/day: 4 CIG How Many Years: Alcohol Use: Past use Frequency: Quant:
--- NOTE | 2020-04-19 07:31 | HPC ---
[facility] [place] [address] PAIN MANAGEMENT CONSULTATION Name: NAZANIN PEREZ Room #: REG [facility].#: [id number] Admission: 04/18/20 Attend Phys: Diane Valverde Discharge: Date of : 57 Report #: [id number] THIS REPORT FOR: cc: Soco Allen Diane C. DO Hocker,Diane DANIEL ~ DATE OF SERVICE: 04/18/2020 CC: Dr Kaiser Richards MD CHIEF COMPLAINT: Chronic intractable pain and left hip pain. HISTORY OF PRESENT ILLNESS: This is a 64-year-old gentleman who returns to the pain clinic today for refill of his medications. Today, he is reporting a pain score most significantly in his left hip, though he does have ongoing right knee and right heel pain as well, stating it as a 4-5/10 today. 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 He reports the medication as well as lying down or leaning to the right have been beneficial. He denies any significant constipation currently with his opioid use or daytime somnolence. The patient reports that he recently started amlodipine due to elevated blood pressures, which we have been discussing with him for quite some time. It does continue to be elevated today at 156/88. He does take his blood pressure daily at home and has brought his log sheet that should continue to show elevated blood pressures, but significantly less than prior to his medication. He does have an appointment in early May to discuss his ongoing hypertension treatment. The patient also reports occasional headaches that he experiences and wonders if this may have to do with the high blood pressure at times. ALLERGIES: PENICILLIN. CURRENT LIST OF MEDICATIONS: Amlodipine 5 mg, OxyContin 20 mg b.i.d., hydrocodone 10/325 p.r.n., nicotine lozenges, diclofenac, Metamucil, Benicar, potassium, torsemide, atorvastatin, aspirin, clonazepam, hydrochlorothiazide, Flonase. PQRS: 1. He has osteoarthritic changes in his knees, hips and hands. Denies any rheumatoid arthritis. 2. Height is 6 feet 1 inch, weight is 268, BMI is 35. 3. Vital signs 156/88, pulse is 85, respirations 16, oxygen sat is 97%. 4. Pain score is 4-5. 5. Denies dizziness, does not need help walking or standing, has not fallen in the last 3 months. 6. The patient is not on any blood thinners, [place] [address] PAIN MANAGEMENT CONSULTATION Name: NAZANIN PEREZ Room #: KRISTI Chavarria#: [id number] Admission: 04/18/20 Attend Phys: Diane Valverde Discharge: Date of : 57 Report #: [id number] hypertension. 7. Opioid therapy is greater than 6 weeks; therefore, an opioid signed contract is on the chart. Risk assessment is moderate. Functional assessment is 44/70. 8. Recreational drug use in the past. He is a current smoker, trying to quit, smoking 4 cigarettes a day and occasionally drinks alcohol. According to the prescription monitoring system, the patient is filling appropriately. He is due to fill his medications on Wednesday, the . His morphine mEq is 110 per day. He has been decreased over the years and continues on this current dose with closely monitoring his medications as well as an occasional benzodiazepine that he takes. There is a recent drug screen on the chart that is appropriate as well. PHYSICAL EXAMINATION: GENERAL: This is alert and orientated, very pleasant, slightly obese 64-year-old gentleman who appears his stated age, placing his current pain score at 4-5. HEENT: Normocephalic, atraumatic. Extraocular eye muscles are intact. He is wearing a mask. MUSCULOSKELETAL: He moves from the sitting to standing position utilizing the armrest. He has antalgic gait. Tenderness in his lumbosacral region that does radiate into his right hip and tenderness in his right knee today. Lower extremity strength is symmetrical at 5/5. IMPRESSION: 1. Chronic intractable pain, prior hip replacement. 2. Chronic pain in his right knee and heel. 3. Hypertension, recently started on medications. 4. Osteoarthritis involving multiple joints of hands, back, knees and hips. 5. Complex medical management utilizing scheduled opioid medications. We reviewed the fact that opiate medications are being used to provide analgesia adequate to support activities of daily living, not attempting to achieve a specific pain score on the 0-10 Visual Analog Scale. The current opiate medications are providing sufficient analgesia to allow the patient to participate in activities of daily living. The patient is not exhibiting any aberrant behavior suggestive of drug diversion. The patient is not having any adverse reactions to medications. The patient is not suffering from daytime somnolence or mental acuity changes. The patient is managing opiate-induced constipation with appropriate hgrk-onq-nfntjmp agents and dietary considerations. The patient was counseled on concern for caution with operating a motor vehicle while using opiate medications. A physical exam was performed and the patient's functional status was evaluated. All patients with back pain were advised against the bed rest greater than 4 days and were advised to return to normal activities. Pain score assessment was [facility] [address] [place] [address] PAIN MANAGEMENT CONSULTATION Name: NAZANIN PEREZ Room #: REG [facility] [place].#: [id number] Admission: 04/18/20 Attend Phys: Diane Valverde Discharge: Date of : 57 Report #: [id number] noted and the treatment plan was reviewed with the patient. All current medications, both prescribed and OTC were reviewed and reconciled on the electronic medical record. Tobacco screening was accomplished and smoking cessation was advised when indicated. BMI was noted and diet/exercise modification was recommended for all patients following outside normal parameters. I reviewed with the patient today their responsibilities to safeguard prescription medications, reviewed their responsibility to utilize medications only as prescribed by the physician. They are to seek and receive pain medications only from 1 physician group ( [facility]). They are to use 1 pharmacy and keep the clinic informed if they change pharmacies. Their responsibilities include making followup visits in a timely fashion and to avoid abrupt discontinuation of medication usage. Their responsibilities further include bringing their medications (bottles from the pharmacy with residual pills) to the visit for possible confirmation of pill counts and the patient understands it is their responsibility to submit to random drug screens to ensure both that the medications prescribed are present, and that no other controlled substances are present. All prescriptions provided today were generated electronically. PLAN: 1. We discussed treatment options with the patient today. The patient finds his medications very beneficial allowing him to be as active as he is able. 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 Both of these do increase his pain in his hip and knees and is grateful for the OxyContin and hydrocodone. Scripts will be sent electronically by Dr. Richards for 2 months. 2. The patient continues to work on smoking cessation. He is smoking currently 6 cigarettes a day, using nicotine lozenges as well as hard candy. 3. We did discuss his elevated blood pressure again. He is recently started on amlodipine at 5 mg, showing me his log of blood pressures that still remain elevated. He occasionally is complaining of a headache on his left temporal area. I encouraged him to talk to his primary care doctor about his continued increase in blood pressure as well as this headache that he has occasionally. 4. The patient will return in 2 months. The patient seen in collaboration with Dr. Richards who I discussed this case with today. <ELECTRONICALLY SIGNED> By: Diane Valverde 04/19/20 0731 [id number] Diane Valverde /nt
== END ==
LOC: PAIN 06:50
PROVIDERS: ATTEND Clinical Nurse Specialist Adult Health
DX: G89.4 Chronic pain syndrome (principal); I10 Essential (primary) hypertension; M19.90 Unspecified osteoarthritis, unspecified site; Z79.891 Long term (current) use of opiate analgesic

== ENCOUNTER → 2020-06-13 | Outpatient (CLI) | payer OTHER ==
--- NOTE | 2020-06-13 13:13 | HPC ---
[facility] [place] [address] [place] [address] PAIN MANAGEMENT CONSULTATION Name: NAZANIN PEREZ [facility] [id number] Admission: 06/13/20 Attend Phys: Diane Valverde Discharge: Date of : 57 Report #: [id number] THIS REPORT FOR: cc: Soco Allen Diane C. DO Hocker,Diane DANIEL ~ DATE OF SERVICE: 06/13/2020 CHIEF COMPLAINT: Chronic intractable pain and left hip pain. HISTORY OF PRESENT ILLNESS: This is a 64-year-old gentleman who I am speaking via the telephone today for a telemedicine appointment. We are having problems with his audiovisual speaking from 9:12 to 9:35. He has consented for this Telemed appointment. This is a 64-year-old gentleman, who states his pain score today is a 6/10, slightly higher than his average due to the weather changes. He states his left hip is most problematic as well as his low back and pain is increased with standing and walking. He denies any significant constipation as long as he takes hskw-mva-jiaxgjg medications. The patient reports he is having a flare of his COPD due to the cold weather. He has been utilizing his breathing treatments around the clock. He is trying to stay out of the cold due to the extreme temperatures right now, which do give him significant breathing problems. The patient reports he is trying to decrease his smoking. 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 He has been trying to decrease his smoking, but has not been able to successfully but has decreased significantly. ALLERGIES: PENICILLIN. CURRENT LIST OF MEDICATIONS: Albuterol, nicotine patches, atorvastatin, amlodipine, Benicar, aspirin, diclofenac gel, hydrocodone, OxyContin 20 mg b.i.d., clonazepam, potassium, furosemide, hydrochlorothiazide, Trelegy Ellipta, guaifenesin, Daliresp, Flonase, Metamucil. PQRS: 1. He has osteoarthritic changes in his knees, hips and hands. Denies any rheumatoid arthritis. 2. Height, weight and vital signs are deferred due to a telemedicine appointment. Pain score today at 6/10. The patient denies dizziness, does not need assistance with ambulation. He has not fallen in the last 3 months. 3. The patient is not on any blood thinners, [place] [address] PAIN MANAGEMENT CONSULTATION Name: NAZANIN PEREZ Room #: REG [facility]#: [id number] Admission: 06/13/20 Attend Phys: Diane Valverde Discharge: Date of : 57 Report #: [id number] hypertension. 4. Opioid therapy is greater than 6 weeks; therefore, an opioid signed contract is on the chart. Risk assessment is moderate. Functional assessment is 44/70. 5. Recreational drug use in the past. He is currently smoking 4-7 cigarettes a day and using Nicorette gum trying to decrease his smoking. He occasionally drinks alcohol. According to the prescription monitoring system, his morphine mEq is 106 MME per day. He is followed every 2 months in the clinic and he is due to fill his medications on Wednesday. He does take clonazepam for his anxiety that has been controlled by his primary care doctor and fills appropriate for that medication as well. There is a drug screen on the chart that is appropriate for his medications. PHYSICAL EXAMINATION: GENERAL: This is alert and orientated, anxious gentleman who I am speaking via the telephone today, so the review of systems only. He states his pain is in his left hip, which is his most problematic area, though he is experiencing some ongoing low back pain as well. His joints are more tender due to the cold weather. He is a good historian today. IMPRESSION: 1. Chronic intractable pain, prior hip replacement. 2. Chronic pain in his knee and lower back. 3. Hypertension. 4. Osteoarthritis involving multiple joints of hands, back, knees and hips. 5. Complex medical management utilizing scheduled opioid medications. 6. Chronic obstructive pulmonary disease. We reviewed the fact that opiate medications are being used to provide analgesia adequate to support activities of daily living, not attempting to achieve a specific pain score on the 0-10 Visual Analog Scale. The current opiate medications are providing sufficient analgesia to allow the patient to participate in activities of daily living. The patient is not exhibiting any aberrant behavior suggestive of drug diversion. The patient is not having any adverse reactions to medications. The patient is not suffering from daytime somnolence or mental acuity changes. The patient is managing opiate-induced constipation with appropriate alfo-tgm-hvwgzmb agents and dietary considerations. The patient was counseled on concern for caution with operating a motor vehicle while using opiate medications. A physical exam was performed and the patient's functional status was evaluated. All patients with back pain were advised against the bed rest greater than 4 days and were advised to return to normal activities. Pain score assessment was noted and the treatment plan was reviewed with the patient. All current medications, both prescribed and OTC were reviewed and reconciled on the [address] [address] PAIN MANAGEMENT CONSULTATION Name: NAZANIN PEREZ Room #: REG [facility]#: [id number] Admission: 06/13/20 Attend Phys: Diane Valverde Discharge: Date of : 57 Report #: [id number] electronic medical record. Tobacco screening was accomplished and smoking cessation was advised when indicated. BMI was noted and diet/exercise modification was recommended for all patients following outside normal parameters. I reviewed with the patient today their responsibilities to safeguard prescription medications, reviewed their responsibility to utilize medications only as prescribed by the physician. They are to seek and receive pain medications only from 1 physician group ( [facility]). They are to use 1 pharmacy and keep the clinic informed if they change pharmacies. Their responsibilities include making followup visits in a timely fashion and to avoid abrupt discontinuation of medication usage. Their responsibilities further include bringing their medications (bottles from the pharmacy with residual pills) to the visit for possible confirmation of pill counts and the patient understands it is their responsibility to submit to random drug screens to ensure both that the medications prescribed are present, and that no other controlled substances are present. All prescriptions provided today were generated electronically. PLAN: 1. We discussed treatment options with the patient today. Overall, he feels the medication is very beneficial in controlling his pain despite a higher number today due to the colder weather. We will continue him on his OxyContin 20 mg b.i.d. and hydrocodone 10/325, #120. These will be sent electronically by Dr. Richards to fill 06/17/2020 and again released on 07/16/2019. This medication does have a prior authorization. It is now available for 1 year, but due to fill every 30 days. I explained to the patient that his insurance company may not allow him to fill until Wednesday, which will be for 30 days. The patient to be aware of that. The patient continues to have breathing issues lately due to the weather. I encouraged him that if he continues to have more problematic that his breathing treatments are not helping and he may need to see his primary and possibly even be tested for COVID due to having difficulty breathing. 2. The patient has not had his vaccination yet for COVID. He is on several waiting list. He is 64, so not quite able on some availability to have the vaccination, but he is very interested in having this weather becomes available to him. 3. The patient will be seen in 2 months. I collaborated care for this Telemed appointment with Dr. Richards today. <ELECTRONICALLY SIGNED> By: Diane Valverde 06/13/20 1313 [id number] Diane Valverde /nt
== END ==
LOC: TELEPC 06:51 → PAIN 09:54
PROVIDERS: ATTEND Clinical Nurse Specialist Adult Health
DX: M16.0 Bilateral primary osteoarthritis of hip (principal); G89.29 Other chronic pain; I10 Essential (primary) hypertension; J44.9 Chronic obstructive pulmonary disease, unspecified; M25.561 Pain in right knee; M25.562 Pain in left knee; F11.20 Opioid dependence, uncomplicated; M17.0 Bilateral primary osteoarthritis of knee; M19.042 Primary osteoarthritis, left hand; M19.041 Primary osteoarthritis, right hand; Z88.8 Allergy status to other drugs, medicaments and biological substances; Z79.899 Other long term (current) drug therapy

== ENCOUNTER → 2020-08-08 | Outpatient (CLI) | payer OTHER ==
[~2020-08-08] VITALS: Ht 185.4 cm; Wt 121.6 kg
[2020-08-08 10:03] VITALS: BP 141/92
--- NOTE | 2020-08-08 10:21 | NUR ---
Pain Clinic Assessment: 1. History of Osteoarthritis: HIPS B/L KNEES B/L HANDS History of Rheumatoid Arthritis: Not Applicable 2. Height: 6 ft. 1 in. 185.4 cm. Weight: 268.0 lb. oz. 121.564 kg. Patient's BMI: 35.4 3. Vital Signs: BP: 141/92 Pulse: 104 Resp: 22 Temp: 02 Sat: 97 ECG Mon: 4. Pain Intensity: 4 5. Fall Risk: Dizziness: N Needs help standing or walking: N Fallen in the last 3 months: N Fall risk comments: 0 6. Patient on Blood Thinner: None 7. History of Hypertension: Y 8. Opioid Therapy greater than 6 weeks: Y Opiate Contract Signed: 12/16/15 9. Risk Assessment Tool Provided: MODERATE RISK 08/07 10. Functional Assessment Tool: 11. Recreational Drug Use: Past greater than 3 mos Drug Type: Tobacco Use: Current Every Day Smoker Tobacco Type: Cigarettes Amount or Packs/day: 1/2 PACK How Many Years: Alcohol Use: Past use Frequency: Quant:
== END ==
LOC: PAIN 06:47
PROVIDERS: ATTEND Clinical Nurse Specialist Adult Health
DX: M16.0 Bilateral primary osteoarthritis of hip (principal); M19.042 Primary osteoarthritis, left hand; M19.041 Primary osteoarthritis, right hand; M17.0 Bilateral primary osteoarthritis of knee; F11.20 Opioid dependence, uncomplicated; Z72.0 Tobacco use; G89.29 Other chronic pain

== ENCOUNTER → 2020-10-07 | Outpatient (CLI) | payer OTHER ==
[~2020-10-07] VITALS: Ht 185.4 cm; Wt 119.4 kg
[2020-10-07 08:59] VITALS: BP 136/78
--- NOTE | 2020-10-07 09:18 | NUR ---
Pain Clinic Assessment: 1. History of Osteoarthritis: HIPS B/L KNEES B/L HANDS History of Rheumatoid Arthritis: Not Applicable 2. Height: 6 ft. 1 in. 185.4 cm. Weight: 263.2 lb. oz. 119.387 kg. Patient's BMI: 34.7 3. Vital Signs: BP: 136/78 Pulse: 95 Resp: 20 Temp: 02 Sat: 97 ECG Mon: 4. Pain Intensity: 6-7 5. Fall Risk: Dizziness: N Needs help standing or walking: N Fallen in the last 3 months: N Fall risk comments: 0 6. Patient on Blood Thinner: None 7. History of Hypertension: Y 8. Opioid Therapy greater than 6 weeks: Y Opiate Contract Signed: 12/16/15 9. Risk Assessment Tool Provided: MODERATE RISK 08/07 10. Functional Assessment Tool: 11. Recreational Drug Use: Past greater than 3 mos Drug Type: Tobacco Use: Current Every Day Smoker Tobacco Type: Amount or Packs/day: How Many Years: Alcohol Use: Past use Frequency: Quant:
== END ==
LOC: PAIN 07:05
PROVIDERS: ATTEND Clinical Nurse Specialist Adult Health
DX: G89.4 Chronic pain syndrome (principal); M25.552 Pain in left hip; M54.6 Pain in thoracic spine; M19.90 Unspecified osteoarthritis, unspecified site; F17.200 Nicotine dependence, unspecified, uncomplicated; Z96.642 Presence of left artificial hip joint; Z79.899 Other long term (current) drug therapy; Z79.891 Long term (current) use of opiate analgesic; Z88.0 Allergy status to penicillin

== ENCOUNTER → 2020-11-28 | Outpatient (CLI) | payer OTHER ==
[~2020-11-28] VITALS: Ht 185.4 cm; Wt 119.4 kg
[2020-11-28 09:00] VITALS: BP 137/73
--- NOTE | 2020-11-28 09:16 | NUR ---
Pain Clinic Assessment: 1. History of Osteoarthritis: HIPS B/L KNEES B/L HANDS History of Rheumatoid Arthritis: Not Applicable 2. Height: 6 ft. 1 in. 185.4 cm. Weight: 263.2 lb. oz. 119.387 kg. Patient's BMI: 34.7 3. Vital Signs: BP: 137/73 Pulse: 82 Resp: 20 Temp: 02 Sat: 97 ECG Mon: 4. Pain Intensity: 6 5. Fall Risk: Dizziness: N Needs help standing or walking: N Fallen in the last 3 months: N Fall risk comments: 0 6. Patient on Blood Thinner: None 7. History of Hypertension: Y 8. Opioid Therapy greater than 6 weeks: Y Opiate Contract Signed: 12/16/15 9. Risk Assessment Tool Provided: MODERATE RISK 08/07 10. Functional Assessment Tool: 11. Recreational Drug Use: Past greater than 3 mos Drug Type: Tobacco Use: Current Every Day Smoker Tobacco Type: Cigarettes Amount or Packs/day: 1/2 How Many Years: Alcohol Use: Past use Frequency: Quant:
== END ==
LOC: PAIN 07:01
PROVIDERS: ATTEND Clinical Nurse Specialist Adult Health
DX: G89.29 Other chronic pain (principal); M16.0 Bilateral primary osteoarthritis of hip; M17.0 Bilateral primary osteoarthritis of knee; M19.042 Primary osteoarthritis, left hand; M19.041 Primary osteoarthritis, right hand; I10 Essential (primary) hypertension; F17.200 Nicotine dependence, unspecified, uncomplicated; Z88.0 Allergy status to penicillin; Z79.891 Long term (current) use of opiate analgesic; Z79.899 Other long term (current) drug therapy

== ENCOUNTER → 2021-01-20 | Outpatient (CLI) | payer OTHER | LOC: TELEPC 06:57 → PAIN 08:22 → TELEPC 13:23 | PROVIDERS: ATTEND Clinical Nurse Specialist Adult Health | DX: G89.4 Chronic pain syndrome (principal); M25.552 Pain in left hip; M19.90 Unspecified osteoarthritis, unspecified site; Z79.891 Long term (current) use of opiate analgesic; Z79.899 Other long term (current) drug therapy; Z88.0 Allergy status to penicillin ==

== ENCOUNTER → 2021-04-07 | Outpatient (CLI) | payer OTHER | LOC: TELEPC 08:15 | PROVIDERS: ATTEND Clinical Nurse Specialist Adult Health | DX: G89.29 Other chronic pain (principal); M25.552 Pain in left hip; M25.561 Pain in right knee; M25.562 Pain in left knee; M54.50 Low back pain, unspecified; Z96.642 Presence of left artificial hip joint; Z79.82 Long term (current) use of aspirin; Z79.899 Other long term (current) drug therapy; Z88.0 Allergy status to penicillin ==

== ENCOUNTER → 2021-06-02 | Outpatient (CLI) | payer OTHER ==
[~2021-06-02] VITALS: Ht 185.4 cm; Wt 113.9 kg
[2021-06-02 10:59] VITALS: BP 147/83
--- NOTE | 2021-06-02 11:02 | NUR ---
Pain Clinic Assessment: 1. History of Osteoarthritis: HIPS B/L KNEES B/L HANDS History of Rheumatoid Arthritis: Not Applicable 2. Height: 6 ft. 1 in. 185.4 cm. Weight: 251.0 lb. oz. 113.853 kg. Patient's BMI: 33.1 3. Vital Signs: BP: 147/83 Pulse: 83 Resp: 16 Temp: 02 Sat: 96 ECG Mon: 4. Pain Intensity: 7 5. Fall Risk: Dizziness: N Needs help standing or walking: N Fallen in the last 3 months: N Fall risk comments: 0 6. Patient on Blood Thinner: None 7. History of Hypertension: Y 8. Opioid Therapy greater than 6 weeks: Y Opiate Contract Signed: 12/16/15 9. Risk Assessment Tool Provided: MODERATE RISK 08/07 10. Functional Assessment Tool: 11. Recreational Drug Use: Past greater than 3 mos Drug Type: Tobacco Use: Current Every Day Smoker Tobacco Type: Amount or Packs/day: How Many Years: Alcohol Use: Past use Frequency: Quant:
== END ==
LOC: PAIN 10:16
PROVIDERS: ATTEND Clinical Nurse Specialist Adult Health
DX: G89.29 Other chronic pain (principal); M54.50 Low back pain, unspecified; M25.562 Pain in left knee; M25.561 Pain in right knee; R10.32 Left lower quadrant pain; M15.9 Polyosteoarthritis, unspecified; M25.552 Pain in left hip; M25.551 Pain in right hip; F11.90 Opioid use, unspecified, uncomplicated; Z79.82 Long term (current) use of aspirin; Z88.8 Allergy status to other drugs, medicaments and biological substances